=== PATIENT | female | born 1960 | race Caucasian/White ===

== ENCOUNTER 2021-09-25 11:48 | Outpatient (CLI) | payer BC, SELFPAY ==
[2021-09-25 15:35] LABS: Absolute Lymphocyte Count 3.74 X10^3/uL (0.83-4.51); Absolute Neutrophil Count 4.3 X10^3/uL (2.0-7.7); Basophil# 0.16 X10^3/uL; Basophil% 1.6 % (0-1); Eosinophil# 0.46 X10^3/uL; Eosinophils% 4.7 % (0-5); Hematocrit 42.3 % (37-47); Lymphocyte # 3.74 X10^3/ul (0.83-4.51); Lymphocyte % 38.5 % (19-41); Mean Corp Hgb Conc 33.1 g/dL (32-36); Mean Corpuscular Hgb 30.1 pg (27.0-32.0); Mean Platelet Vol. 10.4 fl (6.2-12.0); Monocyte% 10.3 % (0-10); NRBC Flagged by Analyzer 0 % (0-5); Neutrophil % 44.4 % (47-70); Platelet Count 455 K/mm3 (150-450); RBC Distribution Width CV 13.7 % (11.6-14.6); RBC Distribution Width SD 45.3 fl (35.1-43.9); Red Blood Count 4.65 M/mm3 (4.2-5.4); White Blood Count 9.7 K/mm3 (4.4-11.0)
[2021-09-25 15:53] LABS: AST(SGOT) 18 U/L (15-37); Alanine Aminotransfer ALT/SGPT 36 U/L (13-56); Albumin, Serum 3.8 g/dL (3.2-5.0); Alkaline Phosphatase 77 U/L (45-117); Amylase 65 U/L (25-115); Anion Gap 6 (5-15); BUN 16 mg/dL (7-18); BUN/Creat Ratio 15.5 RATIO (10-20); Calcium,Total 9.6 mg/dL (8.5-10.1); Chloride 105 mmol/L (98-107); Cholesterol 206 mg/dL (200); Creatinine, Serum 1.03 mg/dL (0.55-1.02); EST Glomerular Filtration Rate 58 mL/min (>60); Est Glom Filt Rate - Afr Amer 70 mL/min (>60); Globulin 3.7 g/dL (2.2-4.2); Glucose 86 mg/dL (74-106); High Density Lipoprotein 49 mg/dL; Lipase 115 U/L (73-393); Potassium 4.4 mmol/L (3.5-5.1); Protein, Total 7.5 g/dL (6.4-8.2); Sodium Level 139 mmol/L (136-145); Triglycerides 256 mg/dL; Very Low Density Lipoprotein 51 mg/dL (5-40)
== END 2021-09-25 23:59 | disposition home or self-care (01) ==
LOC: BIMLAB 11:49
PROVIDERS: PCP Internal Medicine; Referring Provider Internal Medicine; Visit Provider Internal Medicine
DX: I10 Essential (primary) hypertension (principal); E03.9 Hypothyroidism, unspecified; Z98.890 Other specified postprocedural states
CPT/HCPCS: 36415; 80053; 80061; 82150; 83690; 84443; 85025

== ENCOUNTER 2021-10-20 13:15 | Outpatient (CLI) | payer BC, SELFPAY ==
--- NOTE | 2021-10-20 13:20 | BI_ITS ---
MAMMOGRAPHY - BILATERAL SCREENING 3-D TOMOSYNTHESIS REASON FOR EXAM: Female, 61 years old. Breast Cancer Screening PERTINENT HISTORY: No significant family history. TECHNIQUE: 2-D mammograms and 3-D Tomosynthesis of the breast (s) were performed. CAD was performed. COMPARISON: 08/13/2020 FINDINGS: The breast composition is composed of scattered fibroglandular density. Scattered benign calcifications are seen. No dense spiculated masses or suspicious microcalcifications are identified. No architectural distortion is identified. There is no skin thickening or retraction. There has been no significant change since the prior study. BI/SCRN MAMM (CAD)W/ZENAIDA BILAT IMPRESSION: No mammographic signs of malignancy. Routine yearly mammograms recommended. ASSESSMENT CATEGORY: BIRADS Category 1: Negative. A letter regarding these results will be sent to the patient by the facility within 30 days. FOLLOW UP RECOMMENDATION: Yearly follow up mammogram recommended. (A) Approximately 10% of breast cancers are not detected by mammography. A normal mammogram should not delay biopsy of a clinically suspicious abnormality. Electronically Signed: Evelio Hidalgo MD at 15:20 EDT ,
== END 2021-10-20 23:59 | disposition home or self-care (01) ==
LOC: OPBI 13:19
PROVIDERS: PCP Internal Medicine; Visit Provider Internal Medicine
DX: Z12.31 Encounter for screening mammogram for malignant neoplasm of breast (principal)
CPT/HCPCS: 77063; 77067

== ENCOUNTER → 2022-04-30 | Outpatient (CLI) | payer BC, SELFPAY ==
--- NOTE | 2022-04-30 11:19 | US_ITS ---
STUDY: ULTRASOUND BREAST - LEFT REASON FOR EXAM: Female, 62 years old. Left axillary swelling. TECHNIQUE: Axial and longitudinal images of the LEFT breast were performed with a high resolution ultrasound transducer. # OF IMAGES: 36 COMPARISON: None. FINDINGS: LEFT Breast: Imaging of the left axilla was obtained. There are 2, small benign-appearing lymph nodes. The largest lymph node measures 1 cm x 1.27 x 0.4 cm US/Breast Limited Unilateral IMPRESSION: There are 2 small benign-appearing left axillary lymph nodes. ASSESSMENT CATEGORY: BIRADS Category 2: Benign. A letter regarding these results will be sent to the patient by the facility within 30 days. Electronically Signed: Gerson Vernon MD at 13:26 EDT ,
== END | disposition home or self-care (01) ==
LOC: US 11:17
PROVIDERS: PCP Internal Medicine; Referring Provider Internal Medicine; Visit Provider Internal Medicine
DX: R22.31 Localized swelling, mass and lump, right upper limb (principal)
CPT/HCPCS: 76642

== ENCOUNTER → 2022-10-22 | Outpatient (CLI) | payer BC, SELFPAY ==
[2022-10-22 12:04] LABS: Absolute Lymphocyte Count 3.09 X10^3/uL (0.83-4.51); Absolute Neutrophil Count 3.2 X10^3/uL (2.0-7.7); Basophil# 0.14 X10^3/uL; Basophil% 1.8 % (0-1); Eosinophil# 0.49 X10^3/uL; Eosinophils% 6.4 % (0-5); Hematocrit 41.2 % (37-47); Hemoglobin 13.8 g/dL (12.0-15.0); Lymphocyte # 3.09 X10^3/ul (0.83-4.51); Lymphocyte % 40.4 % (19-41); Mean Corp Hgb Conc 33.5 g/dL (32-36); Mean Corpuscular Hgb 30.1 pg (27.0-32.0); Mean Platelet Vol. 10.5 fl (6.2-12.0); Monocyte# 0.75 X10^3/uL; Monocyte% 9.8 % (0-10); NRBC Flagged by Analyzer 0 % (0-5); Neutrophil # 3.15 X10^3/uL (2.7-7.7); Neutrophil % 41.3 % (47-70); Platelet Count 380 K/mm3 (150-450); RBC Distribution Width CV 13.7 % (11.6-14.6); RBC Distribution Width SD 44.8 fl (35.1-43.9); Red Blood Count 4.58 M/mm3 (4.2-5.4); White Blood Count 7.6 K/mm3 (4.4-11.0)
[2022-10-22 12:23] LABS: ALB/GLOB Ratio 0.9 RATIO (0.9-2.4); AST(SGOT) 22 U/L (15-37); Alanine Aminotransfer ALT/SGPT 37 U/L (13-56); Albumin, Serum 3.4 g/dL (3.2-5.0); Alkaline Phosphatase 69 U/L (45-117); Amylase 55 U/L (25-115); Anion Gap 2 (5-15); BUN 18 mg/dL (7-18); Calcium,Total 9.1 mg/dL (8.5-10.1); Chloride 109 mmol/L (98-107); Cholesterol 180 mg/dL (200); EST Glomerular Filtration Rate 60 mL/min (>60); Est Glom Filt Rate - Afr Amer 73 mL/min (>60); Globulin 3.7 g/dL (2.2-4.2); Glucose 103 mg/dL (74-106); High Density Lipoprotein 50 mg/dL; Lipase 36 U/L (13-75); Potassium 4.3 mmol/L (3.5-5.1); Protein, Total 7.1 g/dL (6.4-8.2); Sodium Level 138 mmol/L (136-145); Thyroid Stim Hormone (TSH) 0.32 uIU/mL (0.358-3.74); Triglycerides 160 mg/dL; Very Low Density Lipoprotein 32 mg/dL (5-40)
== END | disposition home or self-care (01) ==
LOC: BIMLAB 08:51
PROVIDERS: PCP Internal Medicine; Referring Provider Internal Medicine; Visit Provider Internal Medicine
DX: Z98.890 Other specified postprocedural states (principal); I10 Essential (primary) hypertension; E03.9 Hypothyroidism, unspecified
CPT/HCPCS: 36415; 80053; 80061; 82150; 83690; 84443; 85025

== ENCOUNTER → 2022-10-29 | Outpatient (CLI) | payer BC, SELFPAY ==
--- NOTE | 2022-10-29 07:16 | BI_ITS ---
MAMMOGRAPHY - BILATERAL SCREENING REASON FOR EXAM: Female, 62 years old. Routine annual screening examination. PERTINENT HISTORY: Non-contributory. TECHNIQUE: Digital bilateral breast zenaida (3D mammographic acquisition) in the CC and MLO projections. 2-D mediolateral oblique (MLO) and craniocaudad (CC) views of both breasts were obtained. CAD: Full Field Digital Mammography with Computer Added Detection was performed. COMPARISON: Comparison is made with prior study dated October 20, 2021. FINDINGS: Breast Composition: There are scattered areas of fibroglandular density. There are no dominant masses or suspicious calcifications. Stable small benign-appearing bilateral axillary lymph nodes. No other significant abnormalities are identified. There has been no significant change since the prior study. BI/SCRN MAMM (CAD)W/ZENAIDA BILAT IMPRESSION: Stable bilateral screening mammogram. Yearly follow-up mammogram recommended. (A) ASSESSMENT CATEGORY: BIRADS Category 2: Benign. A letter regarding these results will be sent to the patient by the facility within 30 days. Approximately 10% of breast cancers are not detected by mammography. A normal mammogram should not delay biopsy of a clinically suspicious abnormality. [id number] Electronically Signed: Gerson Vernon MD at 8:59 EDT ,
== END | disposition home or self-care (01) ==
LOC: OPBI 07:16
PROVIDERS: PCP Internal Medicine; Referring Provider Internal Medicine; Visit Provider Internal Medicine
DX: Z12.31 Encounter for screening mammogram for malignant neoplasm of breast (principal)
CPT/HCPCS: 77063; 77067

== ENCOUNTER → 2022-11-19 | Outpatient (CLI) | payer BC, SELFPAY ==
[2022-11-19 16:06] LABS: Anion Gap 6 (5-15); BUN 17 mg/dL (7-18); Calcium,Total 9.4 mg/dL (8.5-10.1); Chloride 105 mmol/L (98-107); Creatinine, Serum 0.95 mg/dL (0.55-1.02); EST Glomerular Filtration Rate 64 mL/min (>60); Est Glom Filt Rate - Afr Amer 77 mL/min (>60); Glucose 85 mg/dL (74-106); Potassium 4.3 mmol/L (3.5-5.1); Sodium Level 140 mmol/L (136-145)
== END | disposition home or self-care (01) ==
LOC: BIMLAB 14:22
PROVIDERS: PCP Internal Medicine; Referring Provider Internal Medicine; Visit Provider Internal Medicine
DX: I10 Essential (primary) hypertension (principal)
CPT/HCPCS: 36415; 80048

== ENCOUNTER 2023-01-17 06:59 | Day surgery (SDC) | payer BC, SELFPAY ==
[2023-01-17] VITALS (7 sets, daily range): BP systolic 110–146; BP diastolic 74–96; PULSE 70–91; RESP 14–16; TEMP 36.1–36.7; O2SAT 93–97; BMI 34.7
--- NOTE | 2023-01-17 07:13 | HP.PCM_ITS ---
[facility] - General General Date of Service: 01/17/23 HPI Narrative VANIA MALONE, is a 62 F who presents for screening colonoscopy. Patient had a colonoscopy 10 years ago normal per patient somewhere in [place]. Patient has bowel movements daily denies any blood. Patient denies any chronic abdominal pain/nausea/vomiting/reflux. Patient denies any family history of colon cancer. 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 [facility] Medical History (Updated 01/12/23 @ 11:06 by Elmira Russell) Arthritis Colon cancer screening COVID Flu vaccine need GERD (gastroesophageal reflux disease) Health care maintenance Hernia Hiatal hernia History of hiatal hernia History of injury of tendon History of pneumonia History of stress test (~2004) Hypertension Left axillary swelling Neuralgia Non-smoker Obesity (BMI 30-39.9) Preventative health care Sinusitis Thyroid disease Wears glasses Home Medications THRIVE MULTIVITAMIN 1 tab PO 1XD 09/02/21 [History Last Taken Unknown] omeprazole 20 mg capsule,delayed release 20 mg PO DAILY 09/02/21 [History Last Taken Unknown] levothyroxine 125 mcg tablet See Rx Instructions .Route .COMPLEX #90 tabs 08/27/22 [Rx Last Taken Unknown] metoprolol succinate 50 mg tablet,extended release 24 hr 50 mg PO QHS #90 tabs 11/19/22 [Rx Last Taken Unknown] hydrochlorothiazide 25 mg tablet See Rx Instructions .Route .COMPLEX #90 tabs 12/17/22 [Rx Last Taken Unknown] Allergy/AdvReac Type Severity Reaction Status Date / Time No Known Allergies Allergy Verified 01/12/23 10:50 Family History (Updated 12/02/22 @ 11:40 by Kirsten Sullivan) Aunt Colon cancer Other Cancer Diabetes Heart disease Hypertension Surgical History (Updated 01/12/23 @ 11:06 by Elmira Russell) History of cardiac catheterization (~2004) History of colonoscopy History of pancreatic surgery (~2004) History of partial splenectomy History of splenectomy History of tonsillectomy Social History Smoking Status: Never smoker alcohol intake: never substance use type: does not use what type of physical activity do you participate in: none Past Medical/Surgical History Planned Operation Planned Operative Procedure/s: CSCOPE Previous Hospitalizations/Surgeries HX Hospitalizations: No Any Problems With Anesthesia: No You/Your Family Experience Fever (Hyperthermia) With Anes: No Cholinesterase deficiency: No Cardiovascular Hx Hypertension: Yes (CONTROLLED WITH MED) Respiratory Hx Sleep Apnea: No Hx Respiratory Tract Infection/Cold (presently): No Do You Snore Loudly (louder than talking or can be heard): Yes Do You Often Feel Tired/ Fatigued/ Sleepy Dring Daytime?: No Has Anyone Observed You Stop Breathing During Sleep?: No Result (for STOP score): Positive Smoking Status: Never smoker Neurological Does patient have nerve stimulator: No Allergies No Known Allergies Allergy (Verified 01/12/23 10:50) Discharge Is Pt Admitted From a Group Home, or a Prison: No After D/C, Where Do you Plan to Go: Return Home Physical Exam Const alert, oriented x3 and no apparent distress HEENT normocephalic and head/scalp atraumatic Resp normal respiratory effort Cardio regular rate GI soft to palpation and non-tender; Negative for non-distended Palpation: Negative for guarding Extremity no clubbing, cyanosis or edema Neuro CN's II-XII intact bilaterally Psych mental status grossly normal Assessment & Plan Assessment/Plan (1) Colon cancer screening: Surgery Risks - Colonoscopy I discussed with the patient the risks of the procedure: Yes Risks Include but are not Limited To: Risks include but are not limited to: Bleeding, perforation requiring further surgery, inability to complete colonoscopy requiring barium enema.
[2023-01-17] MEDS: Lactated Ringers 1,000 ML 15 ML IV (07:36)
--- NOTE | 2023-01-17 08:40 | OP.COLON_ITS ---
Patient Name: Sera Woo Procedure Date: 01/17/2023 8:03 AM Date of : 1960 Age: 62 Procedure: Colonoscopy Indications: Screening for colorectal malignant neoplasm Providers: Elsa Erickson MD Referring MD: Elsa Erickson MD Medicines: Monitored Anesthesia Care Patient Profile: This is a 62 year old female. Last Colonoscopy: 10 years ago. Complications: No immediate complications. Procedure: Pre-Anesthesia Assessment: - Prior to the procedure, a History and Physical was performed, and patient medications and allergies were reviewed. The patient's tolerance of previous anesthesia was also reviewed. The risks and benefits of the procedure and the sedation options and risks were discussed with the patient. All questions were answered, and informed consent was obtained. Prior Anticoagulants: The patient has taken no previous anticoagulant or antiplatelet agents. ASA Grade Assessment: Per anesthesia. After reviewing the risks and benefits, the patient was deemed in satisfactory condition to undergo the procedure. After I obtained informed consent, the scope was passed under direct vision. Throughout the procedure, the patient's blood pressure, pulse, and oxygen saturations were monitored continuously. The Colonoscope was introduced through the anus and advanced to the cecum, identified by the appendiceal orifice, ileocecal valve and palpation. The colonoscopy was performed without difficulty. The patient tolerated the procedure well. The quality of the bowel preparation was good. Scope In: 8:11:52 AM Scope Withdrawal Time 0 hours 9 minutes 27 seconds Scope Out: 8:34:01 AM Total Procedure Duration Time 0 hours 22 minutes 9 seconds Findings: Hemorrhoids were found on perianal exam. Non-bleeding internal hemorrhoids were found. The hemorrhoids were Grade I (internal hemorrhoids that do not prolapse). Three sessile polyps were found in the descending colon and ascending colon. The polyps were 3 to 6 mm in size. These polyps were removed with a cold biopsy forceps. Resection and retrieval were complete. The exam was otherwise without abnormality. Impression: - Hemorrhoids found on perianal exam. - Non-bleeding internal hemorrhoids. - Three 3 to 6 mm polyps in the descending colon and in the ascending colon, removed with a cold biopsy forceps. Resected and retrieved. - The examination was otherwise normal. Recommendation: - Discharge patient to home. - Resume previous diet. - Continue present medications. - Await pathology results. - Repeat colonoscopy in 3 - 5 years for surveillance based on pathology results. Procedure Code(s): --- Professional --- 63035, PT, Colonoscopy, flexible; with biopsy, single or multiple Diagnosis Code(s): --- Professional --- Z12.11, Encounter for screening for malignant neoplasm of colon K64.0, First degree hemorrhoids D12.4, Benign neoplasm of descending colon D12.2, Benign neoplasm of ascending colon CPT copyright 2017 [employer]. All rights reserved. The codes documented in this report are preliminary and upon tier in review may be revised to meet current compliance requirements. MD Elsa Haynes MD 01/17/2023 8:39:53 AM This report has been signed electronically. Number of Addenda: 0 Note Initiated On: 01/17/2023 8:03 AM
--- NOTE | 2023-01-17 08:41 | OP.CCLET_ITS ---
01/17/2023 Michelle Vanegas MD [address] [place] [address] [place] [address] Re : Colonoscopy procedure for Sera Woo Dear Dr. Vanegas This procedure was performed on Tuesday, January 17, 2023. My impressions and recommendations are as follows: Impressions : - Hemorrhoids found on perianal exam. - Non-bleeding internal hemorrhoids. - Three 3 to 6 mm polyps in the descending colon and in the ascending colon, removed with a cold biopsy forceps. Resected and retrieved. - The examination was otherwise normal. Recommendations : - Discharge patient to home. - Resume previous diet. - Continue present medications. - Await pathology results. - Repeat colonoscopy in 3 - 5 years for surveillance based on pathology results. My findings are described in the full procedure note, which is enclosed. If I can be of further assistance, please feel free to contact me at Doctor phone number(s): , Work: . Sincerely, MD Elsa Haynes MD 01/17/2023 8:39:53 AM This report has been signed electronically.
--- NOTE | 2023-01-17 11:12 | COLBX_PTH ---
PATIENT: VANIA MALONE LOC: EN U#:[id number] AGE/SX: 62/F ROOM: RE01/17/[address]: Dr. Elsa Erickson MD : 1960 BED: DIS: 01/17/2023 SPEC #: [id number] RECD: 01/17/23 11:12 STATUS: MAHSA TYLER #: [id number] SARI: 01/17/23 11:[address]: Elsa Erickson DEPT: SURGICAL PATHOLOGY RECD BY: Ishan Guillen ENTERED: 01/17/23 11:35 SP TYPE: COLON BX OT DR: Dr. Michelle Vanegas MD Tissues: A - Ascending colon B - Descending colon Procedures: Surgery Specimen Level IV HEADER OPERATION: Colonoscopy - open access (MAC), biopsy PRE-OP DIAGNOSIS: Colon cancer screening TISSUE SUBMITTED: A - Ascending polyps biopsy (x2), B - Descending polyp biopsy MICROSCOPIC DIAGNOSIS A. Ascending colon polyps (x2), biopsy: Fragments of tubular adenoma. B. Descending colon polyp, biopsy: Tubular adenoma. QUIANA:carson 01/18/2023 MICROSCOPIC DESCRIPTION Slides are reviewed. GROSS DESCRIPTION A - Received in fixative is one container labeled with the patient's name and designated ascending polyps biopsy. The specimen consists of multiple irregular fragments of light bennett soft tissue that in aggregate measure 2.0 x 0.5 x 0.,1 cm. The specimen is totally submitted in one cassette. B - Received in fixative is one container labeled with the patient's name and designated descending polyp biopsy. The specimen consists of multiple irregular fragments of light bennett soft tissue that in aggregate measure 0.7 x 0.3 x 0.1 cm. The specimen is totally submitted in one cassette. / QUIANA:carson 01/17/2023 TC:1 CPT: 07287 x2
== END 2023-01-17 09:29 | disposition home or self-care (01) ==
LOC: EN 07:06 → AC 07:06
PROVIDERS: PCP Internal Medicine; Referring Provider Internal Medicine; Visit Provider Surgery
PROC: 0DJD8ZZ Inspection of Lower Intestinal Tract, Via Natural or Artificial Opening Endoscopic (ICD-10-PCS; CPT 45378; principal; 2023-01-17 08:10)
DX: Z12.11 Encounter for screening for malignant neoplasm of colon (principal); K64.0 First degree hemorrhoids; I10 Essential (primary) hypertension; K64.4 Residual hemorrhoidal skin tags; Z79.899 Other long term (current) drug therapy; D12.4 Benign neoplasm of descending colon; D12.2 Benign neoplasm of ascending colon; E03.9 Hypothyroidism, unspecified; Z79.890 Hormone replacement therapy; Z87.19 Personal history of other diseases of the digestive system
CPT/HCPCS: 45380; 88305; J7120; J2405

== ENCOUNTER → 2023-08-10 | Outpatient (CLI) | payer BC, SELFPAY ==
[2023-08-10 15:03] LABS: Absolute Lymphocyte Count 3.87 X10^3/uL (0.83-4.51); Absolute Neutrophil Count 4.8 X10^3/uL (2.0-7.7); Basophil# 0.13 X10^3/uL; Basophil% 1.2 % (0-1); Eosinophil# 0.99 X10^3/uL; Eosinophils% 9.1 % (0-5); Hematocrit 42.8 % (37-47); Hemoglobin 14.3 g/dL (12.0-15.0); Lymphocyte # 3.87 X10^3/ul (0.83-4.51); Lymphocyte % 35.5 % (19-41); Mean Corp Hgb Conc 33.4 g/dL (32-36); Mean Corpuscular Hgb 29.5 pg (27.0-32.0); Mean Corpuscular Volume 88.2 fL (81-99); Mean Platelet Vol. 10.5 fl (6.2-12.0); Monocyte# 1.11 X10^3/uL; Monocyte% 10.2 % (0-10); NRBC Flagged by Analyzer 0 % (0-5); Neutrophil # 4.76 X10^3/uL (2.7-7.7); Neutrophil % 43.7 % (47-70); Platelet Count 444 K/mm3 (150-450); RBC Distribution Width CV 13.1 % (11.6-14.6); RBC Distribution Width SD 42.5 fl (35.1-43.9); Red Blood Count 4.85 M/mm3 (4.2-5.4); White Blood Count 10.9 K/mm3 (4.4-11.0)
[2023-08-10 15:25] LABS: ALB/GLOB Ratio 1.1 RATIO (0.9-2.4); AST(SGOT) 18 U/L (15-37); Alanine Aminotransfer ALT/SGPT 34 U/L (13-56); Albumin, Serum 3.8 g/dL (3.2-5.0); Alkaline Phosphatase 72 U/L (45-117); Anion Gap 2 (5-15); BUN 15 mg/dL (7-18); BUN/Creat Ratio 15.9 RATIO (10-20); Calcium,Total 9.2 mg/dL (8.5-10.1); Chloride 108 mmol/L (98-107); Cholesterol 194 mg/dL (200); Creatinine, Serum 0.94 mg/dL (0.55-1.02); EST Glomerular Filtration Rate 64 mL/min (>60); Est Glom Filt Rate - Afr Amer 78 mL/min (>60); Globulin 3.5 g/dL (2.2-4.2); Glucose 89 mg/dL (74-106); High Density Lipoprotein 50 mg/dL; Potassium 4.3 mmol/L (3.5-5.1); Protein, Total 7.3 g/dL (6.4-8.2); Sodium Level 137 mmol/L (136-145); Thyroid Stim Hormone (TSH) 0.23 uIU/mL (0.358-3.74); Triglycerides 174 mg/dL; Very Low Density Lipoprotein 35 mg/dL (5-40)
== END | disposition home or self-care (01) ==
LOC: BIMLAB 13:34
PROVIDERS: PCP Internal Medicine; Referring Provider Internal Medicine; Visit Provider Internal Medicine
DX: I10 Essential (primary) hypertension (principal); E03.9 Hypothyroidism, unspecified
CPT/HCPCS: 36415; 80053; 80061; 84443; 85025

== ENCOUNTER → 2023-11-30 | Outpatient (CLI) | payer BC, SELFPAY ==
[2023-11-30 16:14] LABS: Thyroid Stim Hormone (TSH) 0.36 uIU/mL (0.358-3.74)
== END | disposition home or self-care (01) ==
LOC: BIMLAB 11:41
PROVIDERS: PCP Internal Medicine; Visit Provider Internal Medicine
DX: E03.9 Hypothyroidism, unspecified (principal)
CPT/HCPCS: 36415; 84443

== ENCOUNTER → 2024-03-02 | Outpatient (CLI) | payer BC, SELFPAY ==
[2024-03-02 15:43] LABS: Vitamin D,25 Hydroxy 44.3 ng/mL
[2024-03-02 16:17] LABS: Anion Gap 5 (5-15); BUN 12 mg/dL (7-18); BUN/Creat Ratio 10.2 RATIO (10-20); Calcium,Total 9.4 mg/dL (8.5-10.1); Chloride 108 mmol/L (98-107); Creatinine, Serum 1.18 mg/dL (0.55-1.02); EST Glomerular Filtration Rate 49 mL/min (>60); Est Glom Filt Rate - Afr Amer 60 mL/min (>60); Glucose 90 mg/dL (74-106); Potassium 4.3 mmol/L (3.5-5.1); Sodium Level 139 mmol/L (136-145); Thyroid Stim Hormone (TSH) 0.636 uIU/mL (0.358-3.740)
== END | disposition home or self-care (01) ==
LOC: BIMLAB 11:50
PROVIDERS: PCP Internal Medicine; Visit Provider Internal Medicine
DX: E03.9 Hypothyroidism, unspecified (principal); I10 Essential (primary) hypertension; Z13.21 Encounter for screening for nutritional disorder
CPT/HCPCS: 36415; 80048; 82306; 84443

== ENCOUNTER → 2024-03-27 | Outpatient (CLI) | payer BC, SELFPAY ==
--- NOTE | 2024-03-27 14:31 | BI_ITS ---
MAMMOGRAPHY - BILATERAL SCREENING REASON FOR EXAM: Female, 64 years old. Routine annual screening examination. PERTINENT HISTORY: Non-contributory. TECHNIQUE: Digital bilateral breast zenaida (3D mammographic acquisition) in the CC and MLO projections. 2-D mediolateral oblique (MLO) and craniocaudad (CC) views of both breasts were obtained. CAD: Full Field Digital Mammography with Computer Added Detection was performed. COMPARISON: Comparison is made with prior outside examination October 29, 2022. FINDINGS: Breast Composition: There are scattered areas of fibroglandular density. There are no dominant masses or suspicious calcifications. Stable small benign-appearing bilateral axillary lymph nodes. No other significant abnormalities are identified. There has been no significant change since the prior study. BI/SCRN MAMM (CAD)W/ZENAIDA BILAT IMPRESSION: Stable bilateral screening mammogram. Yearly follow-up mammogram recommended. (A) ASSESSMENT CATEGORY: BIRADS Category 2: Benign. A letter regarding these results will be sent to the patient by the facility within 30 days. Approximately 10% of breast cancers are not detected by mammography. A normal mammogram should not delay biopsy of a clinically suspicious abnormality. [id number] Electronically Signed: Gerson Vernon MD at 15:29 EDT ,
--- NOTE | 2024-03-27 14:34 | BD_ITS ---
STUDY: DUAL ENERGY X-RAY ABSORPTIOMETRY / DXA REASON FOR EXAM: Female, 64 years old. Post menopausal TECHNIQUE: Bone Mineral Density (BMD) measurements of lumbar spine and bilateral hips were obtained. COMPARISON: None. FINDINGS: Lumbar Spine (L1-L4): g/cm2 (0.909) / T-score (-1.1) / Z-score (0.4) Findings are suggestive of osteopenia with a low fracture risk. Left Femur Total: g/cm2 (0.848) / T-score (-0.8) / Z-score (0.3) Left Femoral Neck: g/cm2 (0.703) / T-score (-1.3) / Z-score (0.1) Right Femur Total: g/cm2 (0.817) / T-score (-1.0) / Z-score (0.0) Right Femoral Neck: g/cm2 (0.849) / T-score (0.0) / Z-score (1.4) BD/Dexa Bone Density Study IMPRESSION: The patient is considered osteopenic as outlined below according to World Jose Organization (WHO) criteria with a low fracture risk. Reference Information: The T-score is the number of standard deviations above or below the standard which is normal for young adults at their peak bone mineral density. The World Health Organization (WHO) interprets the T-scores as follows: Above -1 Normal bone density Between -1 and -2.5 Osteopenia Equal to / or below -2.5 Osteoporosis As a practical clinical guideline, osteopenia may be graded as follows: Mild -1 through -1.5 Moderate -1.6 through -2.0 Severe -2.1 through -2.4 The Z-score is the number of standard deviations above or below age-matched controls. A Z-score of less than -1.5 would be considered abnormal. References: 1. NIH Osteoporosis and Related Bone Diseases www osteo.org 2. International Society for Clinical Densitometry www iscd.org 3. National Osteoporosis Foundation www nof.org Electronically Signed: Gerson Vernon MD at 14:23 EDT ,
== END | disposition home or self-care (01) ==
PROVIDERS: PCP Internal Medicine; Referring Provider Internal Medicine; Visit Provider Internal Medicine
DX: Z12.31 Encounter for screening mammogram for malignant neoplasm of breast (principal); Z78.0 Asymptomatic menopausal state
CPT/HCPCS: 77063; 77067; 77080

== ENCOUNTER → 2024-09-26 | Outpatient (CLI) | payer OTHER, SELFPAY ==
[2024-09-26 15:53] LABS: Absolute Lymphocyte Count 3.38 X10^3/uL (0.83-4.51); Absolute Neutrophil Count 5.1 X10^3/uL (2.0-7.7); Basophil# 0.12 X10^3/uL; Basophil% 1.2 % (0-1); Eosinophil# 0.51 X10^3/uL; Eosinophils% 5.1 % (0-5); Hematocrit 41.7 % (37-47); Hemoglobin 14.1 g/dL (12.0-15.0); Lymphocyte # 3.38 X10^3/ul (0.83-4.51); Lymphocyte % 33.6 % (19-41); Mean Corp Hgb Conc 33.8 g/dL (32-36); Mean Corpuscular Hgb 30.4 pg (27.0-32.0); Mean Corpuscular Volume 89.9 fL (81-99); Mean Platelet Vol. 10.7 fl (6.2-12.0); Monocyte% 8.9 % (0-10); NRBC Flagged by Analyzer 0 % (0-5); Neutrophil # 5.12 X10^3/uL (2.7-7.7); Neutrophil % 50.8 % (47-70); Platelet Count 483 K/mm3 (150-450); RBC Distribution Width CV 13.7 % (11.6-14.6); Red Blood Count 4.64 M/mm3 (4.2-5.4); White Blood Count 10.1 K/mm3 (4.4-11.0)
[2024-09-26 20:25] LABS: ALB/GLOB Ratio 1.4 RATIO (0.9-2.4); AST(SGOT) 42 U/L (<=31); Alanine Aminotransfer ALT/SGPT 28 U/L (<=34); Albumin, Serum 4.2 g/dL (3.4-4.8); Alkaline Phosphatase 65 U/L (35-104); Anion Gap 10 (5-15); BUN 19 mg/dL (4-19); BUN/Creat Ratio 23.9 RATIO (10-20); Calcium,Total 9.7 mg/dL (7.6-11.0); Carbon Dioxide 24.6 mmol/L (21.0-32.0); Chloride 105 mmol/L (98-108); Creatinine, Serum 0.81 mg/dL (0.70-1.20); EST Glomerular Filtration Rate 83 (>60); Glucose 86 mg/dL (70-99); Potassium 4.5 mmol/L (3.3-5.1); Protein, Total 7.2 g/dL (5.9-8.4); Sodium Level 140 mmol/L (133-145); Thyroid Stim Hormone (TSH) 0.895 uIU/mL (0.300-4.200); Total Bilirubin 0.23 mg/dL (0.00-1.30)
[2024-09-26 20:35] LABS: Cholesterol 204 mg/dL (<=200); High Density Lipoprotein 53 mg/dL; Low Density Lipoprotein Calc. 116 mg/dL; Triglycerides 173 mg/dL; Very Low Density Lipoprotein 35 mg/dL (5-40); cholesterol:hdl ratio screen 3.84
== END | disposition home or self-care (01) ==
LOC: BIMLAB 13:11
PROVIDERS: PCP Internal Medicine; Referring Provider Internal Medicine; Visit Provider Internal Medicine
DX: I10 Essential (primary) hypertension (principal); E03.9 Hypothyroidism, unspecified
CPT/HCPCS: 36415; 80053; 80061; 84443; 85025

== ENCOUNTER → 2025-01-30 | Outpatient (CLI) | payer OTHER, SELFPAY ==
[2025-01-30 12:28] LABS: Hematocrit 42.2 % (37-47); Hemoglobin 13.8 g/dL (12.0-15.0); Immature Granulocytes Count 0.150 X10^3/uL (0.0-0.0); Mean Corp Hgb Conc 32.7 g/dL (32-36); Mean Corpuscular Volume 90.6 fL (81-99); Mean Platelet Vol. 11.1 fl (6.2-12.0); NRBC Flagged by Analyzer 0 % (0-5); Platelet Count 399 K/mm3 (150-450); RBC Distribution Width CV 13.6 % (11.6-14.6); RBC Distribution Width SD 45.0 fl (35.1-43.9); Red Blood Count 4.66 M/mm3 (4.2-5.4); White Blood Count 18.3 K/mm3 (4.4-11.0)
[2025-01-30 13:10] LABS: AST(SGOT) 17 U/L (<=31); Alanine Aminotransfer ALT/SGPT 25 U/L (<=34); Albumin, Serum 4.2 g/dL (3.4-4.8); Alkaline Phosphatase 66 U/L (35-104); Anion Gap 12 (5-15); BUN 20 mg/dL (4-19); BUN/Creat Ratio 19.0 RATIO (10-20); Calcium,Total 9.6 mg/dL (7.6-11.0); Carbon Dioxide 23.0 mmol/L (21.0-32.0); Chloride 108 mmol/L (98-108); Globulin 2.7 g/dL (2.2-4.2); Glucose 84 mg/dL (70-99); Potassium 4.2 mmol/L (3.3-5.1)
[2025-01-30 13:27] LABS: CRP < 3.00 mg/L (0.0-3.0)
[2025-01-31 14:08] LABS: ANTINUCLEAR ANTIBODIES DIRECT Negative (Negative)
== END | disposition home or self-care (01) ==
LOC: BIMLAB 09:43
PROVIDERS: PCP Internal Medicine; Visit Provider Internal Medicine
DX: G51.0 Bell's palsy (principal); I10 Essential (primary) hypertension
CPT/HCPCS: 36415; 80053; 85025; 85652; 86038; 86140; 86225

== ENCOUNTER → 2025-02-05 | Outpatient (CLI) | payer OTHER, SELFPAY ==
--- NOTE | 2025-02-05 13:11 | MRI_ITS ---
PROCEDURE: BRAIN W/WO CONTRAST 02/05/2025 REASON FOR EXAM: RECURRENT ROYAL'S PALSY TECHNIQUE: BRAIN W/WO CONTRAST Multiplanar and multisequence images were obtained. CONTRAST: Clariscan VOLUME: 18 mL FINDINGS: There is abnormal enhancement of the right facial nerve within the right temporal bone, consistent with Royal's palsy. There are scattered punctate foci of abnormal periventricular and subcortical white matter signal in both cerebral hemispheres consistent with chronic ischemic white matter disease. There is a normal sulcal pattern and gyral configuration. There is no evidence of acute intracranial hemorrhage or infarction. The green-white differentiation is well preserved. There is no evidence of restricted diffusion. The ventricles and basilar cisterns are normal. There are normal flow voids demonstrated in the recognized intracranial vessels. The cerebellum and brainstem are unremarkable. The cerebellar pontine angles are normal. The craniovertebral junction is normal. The sella and suprasellar regions are normal. The orbits and retro-orbital regions are unremarkable. The nasal septum is midline. There is no significant paranasal sinus disease. The mastoid air cells are clear. There is normal bone marrow signal in the skull base and calvarium. MRI/Brain W/WO Contrast IMPRESSION: 1. Abnormal enhancement of the right facial nerve consistent with Royal's palsy . 2. Other findings as noted. Reading Location: [id number]
== END | disposition home or self-care (01) ==
LOC: MRI 13:07
PROVIDERS: PCP Internal Medicine; Referring Provider Internal Medicine; Visit Provider Internal Medicine
DX: G51.0 Bell's palsy (principal)
CPT/HCPCS: 70553; A9575

== ENCOUNTER → 2025-05-23 | Outpatient (CLI) | payer OTHER, SELFPAY ==
--- NOTE | 2025-05-23 12:15 | BI_ITS ---
EXAM: SCRN MAMM (CAD)W/ZENAIDA BILAT DATE: 05/23/2025 CLINICAL HISTORY: F, Age 65 y/o , BREAST CANCER SCREENING TECHNIQUE: Procedure Code: [id number] Modality: MG Procedure: SCRN MAMM (CAD)W/ZENAIDA BILAT COMPARISON: Prior exam(s) dated March 27, 2024. FINDINGS: TISSUE DENSITY: There are scattered areas of fibroglandular density. Bilateral Breast Mammographic Findings: No significant masses, calcifications or other abnormalities are identified. Stable small benign-appearing bilateral axillary lymph nodes. No suspicious masses, areas of developing architectural distortion, or suspicious calcifications. There has been no significant interval change. BI/SCRN MAMM (CAD)W/ZENAIDA BILAT IMPRESSION: Stable bilateral screening mammogram. OVERALL FINAL ASSESSMENT BI-RADS 2: BENIGN RECOMMENDATION: Routine annual follow-up in 1 Year Additional Recommendation none A letter with findings and recommendations will be mailed to the patient. Reading Location: [facility]
[2025-05-23 13:48] LABS: Anion Gap 9 (5-15); BUN 15 mg/dL (4-19); BUN/Creat Ratio 15.9 RATIO (10-20); Calcium,Total 9.1 mg/dL (7.6-11.0); Carbon Dioxide 27.5 mmol/L (21.0-32.0); Chloride 104 mmol/L (98-108); Glucose 152 mg/dL (70-99); Potassium 4.0 mmol/L (3.3-5.1)
--- OUTSIDE RECORDS SUMMARY | 2025-05-23 18:24 | XMS RPT_ITS | CCD ---
Author Organization [facility] [place] [facility] Care Team Providers Care Child Adolescent Care Name Role Phone Guilherme ZABALA, Dr. Martinez Primary Care Provider Guilherme ZABALA, Dr. Martinez Referring Provider Julian Luo Attending Provider Guilherme ZABALA, Dr. Martinez Attending Provider [phone] Guilherme ZABALA, Dr. Martinez Primary Care Provider Guilherme ZABALA, Dr. Martinez Referring Provider [phone] JELENA GOMES Primary Care Physician Guilherme ZABALA, Dr. Martinez Primary Care Provider Guilherme ZAABLA, Dr. Martinez Attending Provider [phone] Guilherme ZABALA, Dr. Martinez Referring Provider [phone] ANA FALCON, JELENA Sanders Primary Care Abimael NEWTON MD, MAYELIN Attending Unavailable ELGIN GARRETT MD Attending Unavailable JELENA GOMES Primary Care Abimael Castelan ZIPPER SETTER LOCKSTITCH, Jelena Solorio Primary Care Provider Oleghe, Efewongbe Primary Care Unavailable Oleghe, Efewongbe Attending Unavailable Oleghe, Efewongbe Attending Unavailable Oleghe, Efewongbe Referring Unavailable Oleghe, Efewongbe Primary Care Unavailable Oleghe, Efewongbe Attending Unavailable Oleghe, Efewongbe Referring Unavailable Oleghe, Efewongbe Primary Care Unavailable Oleghe, Efewongbe Primary Care Unavailable Oleghe, Efewongbe Attending Unavailable Oleghe, Efewongbe Referring Unavailable Oleghe, Efewongbe Primary Care Unavailable Oleghe, Efewongbe Attending Unavailable Oleghe, Efewongbe Referring Unavailable Oleghe, Efewongbe Attending Unavailable Oleghe, Efewongbe Referring Unavailable Oleghe, Efewongbe Primary Care Unavailable Oleghe, Efewongbe Attending Unavailable Oleghe, Efewongbe Referring Unavailable Oleghe, Efewongbe Primary Care Unavailable Julian Luo Attending Unavailable Oleghe, Efewongbe Referring Unavailable Oleghe, Efewongbe Primary Care Unavailable Oleghe, Efewongbe Primary Care Unavailable Julian Luo Attending Unavailable Oleghe, Efewongbe Referring Unavailable Oleghe, Efewongbe Attending Unavailable Oleghe, Efewongbe Referring Unavailable Oleghe, Efewongbe Primary Care Unavailable Oleghe, Efewongbe Primary Care Unavailable Oleghe, Efewongbe Attending Unavailable Oleghe, Efewongbe Referring Unavailable Medications Current Medications Medication Drug Class(es) Dates Sig (Normalized) Sig (Original) Albuterol-Budesonide (Airsupra) 90-80 mcg/actuation HFA aerosol inhaler (10 sources) Start: 09-05-2024 Albuterol-Budesonid e (Airsupra) 90-80 mcg/actuation HFA aerosol inhaler Active 2 NMA INHALATION ONCE 5.9 0 September 05, 2024 12:58pm as a single dose; may repeat up to 6 doses per day (12 inhalations) Start: 09-05-2024 Albuterol-[place] sonide (Airsupra) 90-80 mcg/actuation HFA aerosol inhaler Active 2 NMA INHALATION ONCE 5.9 September 05, 2024 12:58pm as a single dose; may repeat up to 6 doses per day (12 inhalations) Start: 09-05-2024 End: 09-05-2024 Albuterol-Budesonide (Airsup ra) 90-80 mcg/actuation HFA aerosol inhaler Discontinued 2 NMA INHALATION ONCE 5.9 0 September 05, 2024 1:00am September 05, 2024 12:58pm as a single dose; may repeat up to 6 doses per day (12 inhalations) Start: 09-05-2024 End: 09-05-2024 Albuterol-Budesonide (Airsup ra) 90-80 mcg/actuation HFA aerosol inhaler Discontinued 2 NMA INHALATION ONCE 5.9 September 05, 2024 1:00am September 05, 2024 12:58pm as a single dose; may repeat up to 6 doses per day (12 inhalations) calcium carbonate 1500 mg / cholecalciferol 800 unt oral tablet (5 sources) Vitamin D Start: 05-23-2024 Calcium Carbonate-Vitamin D3 600 mg-20 mcg (800 unit) tablet Active 1 {tbl} PO daily May 23, 2024 1:00am codeine phosphate 2 mg/ml / guaiFENesin 20 mg/ml oral solution (15 sources) Opioid Agonist Start: 09-05-2024 take 1 mL by mouth every six hours as needed for cough Codeine-Guaifenesin (Guaifenesin Ac) 10-100 mg/5 mL liquid Active 10 mL PO EVERY 6 HOURS as needed for cough 120 0 September 05, 2024 1:00am Start: 04-02-2022 End: 10-22-2022 take 1 mL by mouth every six hours as needed for cough Codeine-Guaifenesin 10-100 mg/5 mL liquid Discontinued 5 mL PO EVERY 6 HOURS as needed for cough 120 1 April 08, 2022 8:14am October 22, 2022 8:11am nyquil HBP (5 sources) Start: 09-05-2024 nyquil HBP Act bella PO AT BEDTIME as needed September 05, 2024 1:00am omeprazole 20 mg delayed release oral capsule (6 sources) Proton Pump Inhibitor Start: 03-23-2016 take 1 capsule by mouth once daily Omeprazole 20 mg capsule,delayed release(DR/EC) Active 20 mg PO DAILY September 02, 2021 1:00am predniSONE 20 mg oral tablet (9 sources) Start: 01-30-2025 take 2 tablets by mouth once daily Prednisone 20 mg tablet Active 40 mg PO daily January 30, 2025 12:00am Start: 01-25-2025 End: 02-01-2025 predniSONE 20 mg oral tablet Dose : 40 mg = 2 tab(s), Oral, qDay, X 7 day(s), # 14 tab(s), 0 Refill(s), 02/01/25 8:16:00 PM EDT Start Date: 01/25/25 Stop Date: 02/01/25 Status: Ordered Quantity: 14.0 Unit: tab(s) Repeat number: 1 Start: 11-30-2023 End: 03-02-2024 prednisone Discontinued 10 m g PO November 30, 2023 12:00am March 02, 2024 11:23am tapering dose from [facility] last tuesday valACYclovir 500 mg oral tablet (4 sources) Herpesvirus Nucleoside Analog DNA Polymerase Inhibitor, Herpes Simplex Virus Nucleoside Analog DNA Polymerase Inhibitor, Herpes Zoster Virus Nucleoside Analog DNA Polymerase Inhibitor Start: 01-25-2025 End: 01-30-2025 take 1 tablet by mouth every twelve hours Valacyclovir 500 mg tablet Active 500 mg PO Q12H January 30, 2025 12:00am Completed/Discontinued Medications Medication Drug Class(es) Dates Sig (Normalized) Sig (Original) amoxicillin 875 mg / clavulanate 125 mg oral tablet (10 sources) Penicillin-class Antibacterial Start: 08-09-2024 End: 09-05-2024 Amoxicillin-Pot Clavulanate 875-125 mg tablet Discontinued 1 {tbl} PO Q12H 20 0 August 09, 2024 1:00am September 05, 2024 12:07pm Start: 01-20-2022 End: 02-10-2022 Amoxicillin-Pot Clavulanate 875-125 mg tablet Discontinued 1 {tbl} PO Q12H 42 21 0 January 20, 2022 12:00am February 09, 2022 12:00am February 10, 2022 12:03am benzonatate 200 mg oral capsule (5 sources) Non-narcotic Antitussive Start: 08-09-2024 End: 09-05-2024 take 1 capsule by mouth three times daily as needed for cough Benzonatate 200 mg capsule Discontinued 200 mg PO THREE TIMES A DAY as needed for cough 30 0 August 09, 2024 1:00am September 05, 2024 12:07pm 12 hr buPROPion hydrochloride 90 mg / naltrexone hydrochloride 8 mg extended release oral tablet (10 sources) Opioid Antagonist, Aminoketone Start: 11-30-2023 End: 03-02-2024 Naltrexone-Bupropi on (Contrave) 8-90 mg tablet extended release Discontinued 2 {tbl} PO TWICE A DAY 360 90 1 November 30, 2023 12:00am March 02, 2024 11:40am Start: 08-10-2023 End: 09-09-2023 Naltrexone-Bupropion (Contra ve) 8-90 mg tablet extended release Discontinued 1 {tbl} PO TWICE A DAY 60 30 0 August 10, 2023 1:00am September 08, 2023 1:00am September 09, 2023 1:05am Take 1 tablet daily x 1 week then increase to BID dexamethasone 6 mg oral tablet (5 sources) Corticosteroid Start: 04-02-2022 End: 04-07-2022 take 1 tablet by mouth once daily Dexamethasone 6 mg tablet Discontinued 6 mg PO DAILY 5 April 02, 2022 12:00am April 07, 2022 3:38pm doxycycline hyclate 20 mg oral tablet (5 sources) Tetracycline-class Drug Start: 08-10-2023 End: 11-30-2023 Doxycycline Hyclate 20 mg tablet Discontinued mg PO August 10, 2023 1:00am November 30, 2023 11:13am fluconazole 150 mg oral tablet (5 sources) Azole Antifungal Start: 01-20-2022 End: 04-02-2022 Fluconazole 150 mg tablet Discontinued 150 mg PO Every 3 Days 2 January 20, 2022 12:00am April 02, 2022 12:55pm hydroCHLOROthiazide 25 mg oral tablet (20 sources) Thiazide Diuretic Start: 11-02-2022 End: 09-05-2024 take 1 tablet by mouth once daily Hydrochlorothiazide 25 mg tablet Discontinued 0 .ROUTE .COMPLEX 90 May 16, 2023 11:03am May 23, 2024 2:30pm TAKE 1 TABLET BY MOUTH EVERY DAY levothyroxine sodium 0.125 mg oral tablet (20 sources) l-Thyroxine Start: 08-11-2023 End: 01-23-2025 Levothyroxine 125 mcg tablet Discontinued 0 .ROUTE .COMPLEX 90 February 06, 2024 4:24pm May 23, 2024 2:30pm TAKE 1/2 tab one day then take 1 tab all other days Start: 09-02-2021 End: 09-02-2021 take 1 capsule by mouth once daily Levothyroxine 125 mcg capsule Discontinued 125 ug PO DAILY September 02, 2021 1:00am September 02, 2021 6:04pm Start: 07-31-2015 End: 08-11-2023 take 1 tablet by mouth once daily Levothyroxine 125 mcg tablet Discontinued 0 .ROUTE .COMPLEX 90 3 August 27, 2022 11:30am August 11, 2023 10:14am TAKE 1 TABLET BY MOUTH EVERY DAY 24 hr metoprolol succinate 50 mg extended release oral tablet (20 sources) beta-Adrenergic Nancy Start: 11-19-2022 End: 01-22-2025 take 1 tablet by mouth every twenty-four hours at bedtime Metoprolol Succinate 50 mg tablet extended release 24 hr Discontinued 50 mg PO AT BEDTIME 90 0 May 03, 2024 12:56pm May 23, 2024 2:30pm Start: 11-02-2022 End: 11-19-2022 take 1 tablet by mouth twice daily Metoprolol Tartrate 50 mg tablet Discontinued 0 .ROUTE .COMPLEX 180 3 November 02, 2022 10:01am November 19, 2022 2:16pm TAKE 1 TABLET BY MOUTH TWICE A DAY Start: 09-02-2021 End: 09-02-2021 take 1 tablet by mouth once daily Metoprolol Tartrate 25 mg tablet Discontinued 25 mg PO DAILY September 02, 2021 1:00am September 02, 2021 6:06pm Start: 04-11-2017 End: 11-02-2022 take 1 tablet by mouth twice daily Metoprolol Tartrate 25 mg tablet Discontinued 0 .ROUTE .COMPLEX 180 3 August 27, 2022 11:30am November 02, 2022 10:02am TAKE 1 TABLET BY MOUTH TWICE A DAY THRIVE MULTIVITAMIN (5 sources) Start: 09-02-2021 End: 11-30-2023 THRIVE MULTIVITAMIN Disconti nued 1 {tbl} PO 1 time daily 0 September 02, 2021 1:00am November 30, 2023 11:14am Start: 09-02-2021 End: 11-30-2023 THRIVE MULTIVITAMIN Disconti nued 1 {tbl} PO 1 time daily September 02, 2021 1:00am November 30, 2023 11:14am Problems Active Problems Problem Classification Problem Date Documented Date Episodic/Chronic Abdominal hernia (11 sources) Hiatal hernia; Translations: [Diaphragmatic hernia without obstruction or gangrene] 08-26-2023 Episodic Allergic reactions (5 sources) Inflammatory dermatosis; Translations: [Dermatitis, unspecified] 11-30-2023 Episodic Chronic obstructive pulmonary disease and bronchiectasis (1 source) Mucopurulent chronic bronchitis; Translations: [Mucopurulent chronic bronchitis] Onset: 03-23-2016 03-23-2016 Chronic Disorders of lipid metabolism (1 source) Hyperlipidemia; Translations: [Hyperlipidemia, unspecified] Onset: 04-02-2009 04-02-2009 Chronic Esophageal disorders (1 source) Gastroesophageal reflux disease; Translations: [Gastro-esophageal reflux disease without esophagitis] Onset: 03-23-2016 03-23-2016 Chronic Essential hypertension (11 sources) Essential hypertension; Translations: [Essential (primary) hypertension] Onset: 01-30-2025 08-26-2023 Chronic Immunizations and screening for infectious disease (5 sources) Needs influenza immunization; Translations: [Encounter for immunization] 08-26-2023 Episodic Comment on above: Does not typically g et it. Has not gotten it in years. Other bone disease and musculoskeletal deformities (5 sources) Osteopenia; Translations: [Other specified disorders of bone density and structure, unspecified site] 05-23-2024 Episodic Other connective tissue disease (5 sources) Neuralgia; Translations: [Neuralgia and neuritis, unspecified] 08-26-2023 Episodic Other connective tissue disease (5 sources) Localized swelling of left upper limb; Translations: [Other specified soft tissue disorders] 08-26-2023 Episodic Other lower respiratory disease (6 sources) Reactive airway disease; Translations: [Respiratory disorder, unspecified] 09-05-2024 Episodic Other lower respiratory disease (6 sources) Cough; Translations: [Cough] 09-05-2024 Episodic Other nervous system disorders (11 sources) Strong's palsy; Translations: [Strong's palsy] Onset: 01-25-2025 Episodic Other nervous system disorders (5 sources) Facial palsy; Translations: [Strong's palsy] 01-30-2025 Episodic Other nervous system disorders (2 sources) Strong's palsy; Translations: [Strong's palsy] Onset: 01-25-2025 Episodic Other nutritional; endocrine; and metabolic disorders (8 sources) Body mass index 30+ - obesity; Translations: [Obesity, unspecified] 08-26-2023 Chronic Other screening for suspected conditions (not mental disorders or infectious disease) (12 sources) Patient encounter status; Translations: [Encounter for screening for malignant neoplasm of colon] Onset: 04-02-2009 08-26-2023 Episodic Other upper respiratory disease (1 source) Chronic rhinitis; Translations: [Chronic rhinitis] Onset: 11-20-2020 11-20-2020 Chronic Other upper respiratory infections (8 sources) Sinusitis; Translations: [Chronic sinusitis, unspecified] 08-09-2024 Chronic Residual codes; unclassified (5 sources) Influenza vaccination declined; Translations: [Immunization not carried out because of patient refusal] 05-23-2024 Episodic Comment on above: Prior poor tolerance following splenectomy Residual codes; unclassified (5 sources) H/O: major abdominal surgery; Translations: [Other specified postprocedural states] 08-26-2023 Episodic Residual codes; unclassified (5 sources) Postmenopausal state; Translations: [Asymptomatic menopausal state] 03-02-2024 Episodic Thyroid disorders (11 sources) Hypothyroidism; Translations: [Hypothyroidism, unspecified] Onset: 01-16-2025 08-26-2023 Chronic Unclassified (3 sources) Facial nerve palsy Unclassified (6 sources) G51.0 - Strong's palsy Unclassified (1 source) Cough, unspecified; Translations: [Cough, unspecified] Onset: 09-03-2024 Viral infection (5 sources) Disease caused by 2019-nCoV; Translations: [COVID-19] 08-26-2023 Episodic Comment on above: 03/29/2022 Past or Other Problems Problem Classification Problem Date Documented Da te Episodic/Chronic Nonspecific chest pain (1 source) Chest pain; Translations: [Chest pain, unspecified] Onset: 01-25-2007 10-30-2024 Episodic Other lower respiratory disease (1 source) Chronic cough; Translations: [Chronic cough] Onset: 03-23-2016 03-23-2016 Episodic Other upper respiratory disease (1 source) Hoarse; Translations: [Dysphonia] Onset: 03-23-2016 03-23-2016 Episodic Other upper respiratory infections (1 source) Acute sinusitis, unspecified; Translations: [Acute sinusitis, unspecified] Onset: 09-26-2024 Episodic Pancreatic disorders (not diabetes) (1 source) Mass of pancreas; Translations: [Other specified diseases of pancreas] Onset: 03-23-2016 03-23-2016 Episodic Residual codes; unclassified (1 source) Asplenia following surgical procedure; Translations: [Acquired absence of spleen] Onset: 03-23-2016 11-20-2020 Episodic Results Test Name Value Interpretation Reference Range Facility Internal Medicine Office Vis itotricia 04-25-2025 Internal Medicine Office Visit [facility] Internal Medicine [address] [place] [address] [place] [address] OFFICE VISIT Date of Service: 04/25/25 MR#: [id number] Acct: [id number] Name: VANIA MALONE Rep #: [id number] : 1960 Provider: Dr. 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 Accompanied by: Self Is patient in pain?: No Allergies No Known Allergies Allergy (Verified 04/25/25 13:24) Medications ???Medication ???Instructions ???Recorded ???Confirmed ???Type omeprazole 20 mg capsule,delayed 20 mg PO DAILY 09/02/21 04/25/25 H istory release calcium 600 mg (as 1 tab PO QDAY 05/23/24 04/25/25 Hi story carbonate)-vitamin D3 20 mcg (800 unit) tablet albuterol 90 mcg-budesonide 80 2 inh inhalation ONCE #5.9 grams 0 09/05/24 04/25/25 Rx mcg/actuation HFA aerosol inhaler (Airsupra) hydrochlorothiazide 25 mg tablet See Rx Instructions .Route 5 04/25/25 History .COMPLEX PRN nyquil HBP PO QHS PRN 03/05/25 10/23/25 Histo ry metoprolol succinate 50 mg 50 mg PO QHS #90 tabs 01/22/25 Rx tablet,extended release 24 hr levothyroxine 125 mcg tablet See Rx Instructions .Route 5 04/25/25 Rx .COMPLEX #90 tabs PFSH Medical History Strong's palsy Facial nerve palsy Hiatal hernia with GERD Flu vaccine refused Osteopenia Post-menopausal Encounter for vitamin deficiency screening Dermatitis Wears glasses Thyroid disease Arthritis History of hiatal hernia GERD (gastroesophageal reflux disease) Non-smoker History of stress test ( 2004) Hypertension History of injury of tendon Obesity (BMI 30-39.9) Flu vaccine need Health care maintenance Left axillary swelling Colon cancer screening COVID Neuralgia Sinusitis Preventative health care Hiatal hernia History of pneumonia Hernia Surgical History History of cardiac catheterization ( 2004) History of tonsillectomy History of colonoscopy History of pancreatic surgery ( 2004) History of splenectomy History of partial splenectomy Family History Aunt Colon cancer Other Cancer Diabetes Heart disease Hypertension Social History Smoking Status: Never smoker alcohol intake: never substance use type: does not use what type of physical activity do you participate in: none HPI HPI Chief Complaint: fu Details: VANIA MALONE, is a 65-year-old female with a history of recurrent Strong's palsy, HTN, and hiatal hernia, presenting for follow-up. The patient reports ongoing recovery from Strong's palsy, noting improvement in symptoms over the past weeks. She can now eat without difficulty and has seen a neurologist, who performed a brain scan that returned normal results. The neurologist indicated that the Strong's palsy is recurrent and did not recommend further treatment at this time. The patient expresses reluctance to consider Botox injections. She has been taking omeprazole for 20 years for acid reflux following hiatal hernia surgery and has not experienced any reflux symptoms since starting the medication. She denies a history of Cifuentes's esophagus. She inquires about the long-term use of omeprazole and potential side effects. The patient also mentions receiving a letter indicating that it is time for her mammogram and requests an order for the screening. She notes a family history of breast cancer, with a cousin who from the disease. History of hypertension and BP has been elevated recently, with diastolic readings today at 100 mmHg. She attributes this to stress from work but has not been monitoring her BP regularly at home. She is currently taking metoprolol and hydrochlorothiazide for BP management. She takes hydrochlorothiazide approximately once a week, primarily when she feels swollen, and took a dose this morning. She expresses difficulty taking the medication consistently due to its diuretic effects, which are inconvenient during meetings. The patient exercises twice a week with a retail personal banker and engages in brisk walking. She has been cooking more at home, reducing her intake of prepared foods, and has decreased her cristiane (more content not included)... [facility] 02-25-2025 [facility] Telephone (AGGENS4) VANIA MALONE ([id number]) 1960 F Date Time Provider Department 02/25/25 JELENA CASTELAN AGGENS4 During your visit today, we recorded the following information about you: Mele Montero 02/25/2025 12:54 PM Signed Rtn pt call LVM Allergies As of Date: 02/25/2025 (No Known Allergies) Date Reviewed: 01/09/2021 Reviewed by: Astrid Herndon MD - Fully Assessed Reason for Visit: Returning Patient's Call [[phone]] Cmt: Rtn pt call LVM Prescriptions as of 02/25/2025 - metoprolol tartrate, short acting, (LOPRESSOR) 25 mg tablet TAKE 1 TABLET BY MOUTH TWICE DAILY. - omeprazole (PRILOSEC) 20 mg capsule Take 1 capsule by mouth every morning. - levothyroxine (SYNTHROID) 125 mcg tablet Take 125 mcg by mouth once daily. Problem List As Of Date 02/25/2025 Noted Resolved CHEST PAIN NOS [R07.9] 01/25/2007 Hyperlipidemia [E78.5] 04/02/2009 Elevated Serum Creatinine [R79.89] 04/02/2009 Chronic cough [R05.3] 03/23/2016 Hoarseness of voice [R49.0] 03/23/2016 Asplenia after surgical procedure [Z90.81] 03/23/2016 Pancreatic mass [K86.89] 03/23/2016 Bronchitis, mucopurulent recurrent (HCC) [J41.1]03/23/2016 Gastroesophageal reflux disease [K21.9] 03/23/2016 Chronic rhinitis [J31.0] 11/20/2020 Encounter Status:Closed by MELE MONTERO on 02/25/25 [facility]ER[facility] 02-08-2025 Lyme Total Antibody LOTTIE Negative Normal Negative [facility] Comment on above: Result Comment: Lyme antibodies not detected. Reflex testing is not indicated. No laboratory evidence of infection with B. burgdorferi (Lyme disease). Negative results may occur in patients recently infected (less than or equal to 14 days) with B. burgdorferi. If recent infection is suspected, repeat testing on a new sample collected in 7 to 14 days is recommended. Performed At: [facility] [id number] Brisa Zee PhD Ph:[phone] Performed By: #### 1 [id number] #### [place] [address] Magnetic resonance imaging r eportOrdered By: Navneet Marques on 02-06-2025 Study report [facility] Imaging Services [address] [place] [id number] Brain W/WO Contrast MR#: [id number] Acct: [id number] Name: VANIA MALONE Rep #: [id number] : 1960 F 64 From: Bird Marques MD PCP: Dr. Michelle Vanegas MD Status: R EG CLI Study:Brain W/WO Contrast Date of Exam: 02/05/25 Exam# [id number] Ordering Dr: Donald Vanegas MD PROCEDURE: BRAIN W/WO CONTRAST 02/05/2025 REASON FOR EXAM: RECURRENT STRONG'S PALSY TECHNIQUE: BRAIN W/WO CONTRAST Multiplanar and multisequence images were obtained. CONTRAST: Clariscan VOLUME: 18 mL FINDINGS: There is abnormal enhancement of the right facial nerve within the right temporal bone, consistent with Strong's palsy. There are scattered punctate foci of abnormal periventricular and subcortical white matter signal in both cerebral hemispheres consistent with chronic ischemic white matter disease. There is a normal sulcal pattern and gyral configuration. There is no evidence of acute intracranial hemorrhage or infarction. The green-white differentiation is well preserved. There is no evidence of restricted diffusion. The ventricles and basilar cisterns are normal. There are normal flow voids demonstrated in the recognized intracranial vessels. The cerebellum and brainstem are unremarkable. The cerebellar pontine angles arenormal. The craniovertebral junction is normal. The sella and suprasellar regions are normal. The orbits and retro-orbital regions are unremarkable. The nasal septum is midline. There is no significant paranasal sinus disease. The mastoid air cells are clear. There is normal bone marrow signal in the skull base and calvarium. MRI/Brain W/WO Contrast IMPRESSION: 1. 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 2. Other findings as noted. Reading Location: [facility] CC: Dr. Michelle Vanegas MD ~ Illuminator: Signed [facility] Work Phone: Brain W/WO Contraston 2024 Brain W/WO Contrast [facility] Imaging Services [address] [place] [id number] Brain W/WO Contrast MR#: [id number] Acct: [id number] Name: VANIA MALONE Rep #: [id number] : 1960 F 64 From: Navneet Marques MD PCP: Dr. Michelle Vanegas MD Status: REG CLI Study: Brain W/WO Contrast Date of Exam: 02/05/25 Exam# [id number] Ordering Dr: Michelle Vanegas MD PROCEDURE: BRAIN W/WO CONTRAST 02/05/2025 REASON FOR EXAM: RECURRENT STRONG'S PALSY TECHNIQUE: BRAIN W/WO CONTRAST Multiplanar and multisequence images were obtained. CONTRAST: Clariscan VOLUME: 18 mL FINDINGS: There is abnormal enhancement of the right facial nerve within the right temporal bone, consistent with Strong's palsy. There are scattered punctate foci of abnormal periventricular and subcortical white matter signal in both cerebral hemispheres consistent with chronic ischemic white matter disease. There is a normal sulcal pattern and gyral configuration. There is no evidence of acute intracranial hemorrhage or infarction. The green-white differentiation is well preserved. There is no evidence of restricted diffusion. The ventricles and basilar cisterns are normal. There are normal flow voids demonstrated in the recognized intracranial vessels. The cerebellum and brainstem are unremarkable. The cerebellar pontine angles are normal. The craniovertebral junction is normal. The sella and suprasellar regions are normal. The orbits and retro-orbital regions are unremarkable. The nasal septum is midline. There is no significant paranasal sinus disease. The mastoid air cells are clear. There is normal bone marrow signal in the skull base and calvarium. MRI/Brain W/WO Contrast IMPRESSION: 1. 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 2. Other findings as noted. Reading Location: [facility] CC: Dr. Michelle Vanegas MD Illuminator: Signed Normal [facility] LAVELLE w/ Reflex Mult Confirmon 02-01-2025 ANTI-DNA (DS)AB TNP Normal [facility] Comment on above: Performed By: #### L 3100.5450, L101.9900, L501.6710 #### [facility] Laboratory [address] [place], [place], [id number] ANTI-SS-A TNP Normal [facility] Comment on above: Performed By: #### L 3100.5450, L101.9900, L501.6710 #### [facility] [address] [place], [address] ANTI-SS-B TNP Normal [facility] Comment on above: Performed By: #### L 3100.5450, L101.9900, L501.6710 #### [facility] [address] [place], [place], [id number] Absolute lymphocyte countOrd ered By: Tylervinbrent Vanegas on 01-30-2025 Lymphocytes Auto (Unsp spec) [#/Vol] 4.81 10*3/uL High 0.83-4.51 [facility] Absolute neutrophil countOrd ered By: drakehillsboroughbrent Vanegas on 01-30-2025 Neutrophils (Bld) [#/Vol] 11.8 10*3/uL High 2.0-7.7 [facility] Anion gap in Serum or Plasma Ordered By: Michelle Vanegas on 01-30-2025 Anion gap [Moles/Vol] 12 mmol/L 5-15 [facility] Automated lymphocyte count a s percentage of total leukocytesOrdered By: Michelle Vanegas on 01-30-2025 Lymphocytes/100 WBC Auto (Unsp spec) 26.2 % 19-41 [facility] BUN/creatinine ratioOrdered By: drakehillsboroughbrent Vanegas on 01-30-2025 Urea nitrogen/Creatinine [Mass ratio] 19.0 mg/mg 10-20 [facility] Basophil percentageOrdered B y: Michelle Vanegas on 01-30-2025 Basophils/100 WBC (Bld) 0.3 % 0-1 [facility] Bilirubin, totalOrdered By: Michelle Vanegas on 01-30-2025 Bilirubin [Mass/Vol] 0.31 mg/dL 0.00-1.30 [facility] CBC W/Diff, Automatedon 01-03 Absolute Lymph 4.81 X10 3/uL High 0.83-4.51 [facility] Comment on above: Performed By: #### L 100.0100, L500.4050 ####[facility] [address] [place], [address] Absolute Neut 11.8 X10 3/uL High 2.0-7.7 [facility] Comment on above: Performed By: #### L 100.0100, L500.4050 ####[facility] [address] [place], [address] Basophils/100 WBC (Bld) 0.3 % Normal 0-1 [facility] Comment on above: Performed By: #### L 100.0100, L500.4050 ####[facility] [address] [place], [address] Eosinophils/100 WBC (Bld) 0.1 % Normal 0-5 [facility] Comment on above: Performed By: #### L 100.0100, L500.4050 ####[facility] [address] [place], [address] Erythrocyte distribution width (RBC) [Ratio] 13.6 % Normal 11.6-14.6 [facility] Comment on above: Performed By: #### L 100.0100, L500.4050 ####[facility] [address] [place], [address] Hematocrit (Bld) [Volume fraction] 42.2 % Normal 37-47 [facility] Comment on above: Performed By: #### L 100.0100, L500.4050 ####[facility] [address] [place], [address] Hemoglobin (Bld) [Mass/Vol] 13.8 g/dL Normal 12.0-15.0 [facility] Comment on above: Performed By: #### L 100.0100, L500.4050 ####[facility] [address] [place], [address] IG% 0.800 Normal 0.0-0.9 [facility] Comment on above: Result Comment: IG% - Immature Granulocytes (promyelocytes, myelocytes and metamyelocytes) > 1% indicates that a LEFT SHIFT is Present. Performed By: #### L 100.0100, L500.4050 ####[facility] [address] [place], [address] Lymphocytes/100 WBC (Bld) 26.2 % Normal 19-41 [facility] Comment on above: Performed By: #### L 100.0100, L500.4050 ####[facility] [address] [place], [address] MCH (RBC) [Entitic mass] 29.6 pg Normal 27.0-32.0 [facility] Comment on above: Performed By: #### L 100.0100, L500.4050 ####[facility] [address] [place], [address] MCHC (RBC) [Mass/Vol] 32.7 g/dL Normal 32-36 [facility] Comment on above: Performed By: #### L 100.0100, L500.4050 ####[facility] [address] [place], [address] MCV (RBC) [Entitic vol] 90.6 fL Normal 81-99 [facility] Comment on above: Performed By: #### L 100.0100, L500.4050 ####[facility] [address] [place], [address] Monocytes/100 WBC (Bld) 8.0 % Normal 0-10 [facility] Comment on above: Performed By: #### L 100.0100, L500.4050 ####[facility] [address] [place], [address] Neutrophils/100 WBC (Bld) 64.6 % Normal 47-70 [facility] Comment on above: Performed By: #### L 100.0100, L500.4050 ####[facility] [address] [place], [address] Nucleated RBC (Bld) [#/Vol] 0 10*3/uL Normal 0-5 [facility] Comment on above: Performed By: #### L 100.0100, L500.4050 ####[facility] [address] [place], [address] Platelet mean volume (Bld) [Entitic vol] 11.1 fL Normal 6.2-12.0 [facility] Comment on above: Performed By: #### L 100.0100, L500.4050 ####[facility] [address] [place], [address] Platelets (Bld) [#/Vol] 399 10*3/uL Normal 150-450 [facility] Comment on above: Performed By: #### L 100.0100, L500.4050 ####[facility] [address] [place], [address] RBC (Bld) [#/Vol] 4.66 10*6/uL Normal 4.2-5.4 [facility] Comment on above: Performed By: #### L 100.0100, L500.4050 ####[facility] [address] [place], [address] RDW SD 45.0 fl High 35.1-43.9 [facility] Comment on above: Performed By: #### L 100.0100, L500.4050 ####[facility] [address] [place], [address] WBC (Bld) [#/Vol] 18.3 10*3/uL High 4.4-11.0 [facility] Comment on above: Performed By: #### L 100.0100, L500.4050 ####[facility] [address] [place], [address] CRPon 01-30-2025 C-REACTIVE PROT < 3.00 Normal 0.0-3.0 [facility] Comment on above: Performed By: #### L 3100.5450, L101.9900, L501.6710 ####[facility] [address] [place], [address] Carbon dioxide, total [Moles /volume] in Central venous bloodOrdered By: Michelle Vanegas on 01-30-2025 CO2 [Moles/Vol] 23.0 mmol/L 21.0-32.0 [facility] Chloride assayOrdered By: Anthony Vanegas on 01-30-2025 Chloride [Moles/Vol] 108 mmol/L 98-108 [facility] Comprehensive Metabolic Prof ilon 01-30-2025 Albumin [Mass/Vol] 4.2 g/dL Normal 3.4-4.8 [facility] Comment on above: Performed By: #### L 100.0100, L500.4050 ####[facility] [address] [place], [address] Albumin/Globulin [Mass ratio] 1.6 {ratio} Normal 0.9-2.4 [facility] Comment on above: Performed By: #### L 100.0100, L500.4050 ####[facility] [address] [place], [address] ALK PHOS 66 U/L Normal 35-104 [facility] Comment on above: Performed By: #### L 100.0100, L500.4050 ####[facility] [address] [place], [address] ALT [Catalytic activity/Vol] 25 U/L Normal <=34 [facility] Comment on above: Performed By: #### L 100.0100, L500.4050 ####[facility] [address] [place], [address] AST [Catalytic activity/Vol] 17 U/L Normal <=31 [facility] Comment on above: Performed By: #### L 100.0100, L500.4050 ####[facility] [address] [place], [address] Bilirubin [Mass/Vol] 0.31 mg/dL Normal 0.00-1.30 [facility] Comment on above: Performed By: #### L 100.0100, L500.4050 ####[facility] [address] [place], [address] BUN/CRE 19.0 RATIO Normal 10-20 [facility] Comment on above: Performed By: #### L 100.0100, L500.4050 ####[facility] [address] [place], [address] Calcium [Mass/Vol] 9.6 mg/dL Normal 7.6-11.0 [facility] Comment on above: Performed By: #### L 100.0100, L500.4050 ####[facility] [address] [place], [address] Chloride [Moles/Vol] 108 mmol/L Normal 98-108 [facility] Comment on above: Performed By: #### L 100.0100, L500.4050 ####[facility] [address] [place], [address] CO2 [Moles/Vol] 23.0 mmol/L Normal 21.0-32.0 [facility] Comment on above: Performed By: #### L 100.0100, L500.4050 ####[facility] [address] [place], [address] Creatinine [Mass/Vol] 1.07 mg/dL Normal 0.70-1.20 [facility] Comment on above: Performed By: #### L 100.0100, L500.4050 ####[facility] [address] [place], [address] GAP 12 Normal 5-15 [facility] Comment on above: Performed By: #### L 100.0100, L500.4050 ####[facility] [address] [place], [address] GFR/1.73 sq M.predicted among non-blacks MDRD (S/P/Bld) [Vol rate/Area] 59 mL/min/{1.73_m2} Low >60 [facility] Comment on above: Result Comment: mL/m in/1.73m2 CKD-EPI Creatinine Equation (2020) Performed By: #### L 100.0100, L500.4050 ####[facility] [address] [place], [address] Globulin (S) [Mass/Vol] 2.7 g/dL Normal 2.2-4.2 [facility] Comment on above: Performed By: #### L 100.0100, L500.4050 ####[facility] [address] [place], [address] Glucose [Mass/Vol] 84 mg/dL Normal 70-99 [facility] Comment on above: Performed By: #### L 100.0100, L500.4050 ####[facility] [address] [place], [address] Potassium [Moles/Vol] 4.2 mmol/L Normal 3.3-5.1 [facility] Comment on above: Performed By: #### L 100.0100, L500.4050 ####[facility] [address] [place], [address] Sodium [Moles/Vol] 143 mmol/L Normal 133-145 [facility] Comment on above: Performed By: #### L 100.0100, L500.4050 ####[facility] [address] [place], [address] T PROT 6.9 g/dL Normal 5.9-8.4 [facility] Comment on above: Performed By: #### L 100.0100, L500.4050 ####[facility] [address] [place], [place], [id number] Urea nitrogen [Mass/Vol] 20 mg/dL High 4-19 [facility] Comment on above: Performed By: #### L 100.0100, L500.4050 ####[facility] [address] [place], [address] Eosinophil percentageOrdered By: Michelle Vanegas on 01-30-2025 Eosinophils/100 WBC (Bld) 0.1 % 0-5 [facility] Erythrocyte Sed Rateon 01-30 SED RATE < 1 Normal [facility] Comment on above: Performed By: #### L 3100.5450, L101.9900, L501.6710 #### [facility] [address] [place], [place], [id number] Erythrocyte distribution wid th ratioOrdered By: Michelle Vanegas on 01-30-2025 Erythrocyte distribution width (RBC) [Ratio] 13.6 % 11.6-14.6 [facility] Erythrocyte distribution wid th standard deviationOrdered By: Michelle Vanegas on 01-30-2025 Erythrocyte distribution width (RBC) [Ratio] 45.0 fl High 35.1-43.9 [facility] Erythrocyte sedimentation ra teOrdered By: Michelle Vanegas on 01-30-2025 ESR (Bld) [Velocity] mm/h [facility] Glomerular filtration rate ( GFR) estimation/1.73 sq m using serum, plasma, or whole bOrdered By: Michelle Vanegas on 01-30-2025 GFR/1.73 sq M.predicted among non-blacks MDRD (S/P/Bld) [Vol rate/Area] 59 mL/min/{1.73_m2} Low >60 [facility] Comment on above: mL/min/1.73m2 CKD-EP I Creatinine Equation (2020) Hematocrit Auto (Bld) [Volum e fraction]Ordered By: Michelle Vanegas on 01-30-2025 Hematocrit (Bld) [Volume fraction] 42.2 % 37-47 [facility] Hemoglobin measurementOrdere d By: Angelibrent Robersonshiradonald on 01-30-2025 Hemoglobin (Bld) [Mass/Vol] 13.8 g/dL 12.0-15.0 [facility] Immature granulocytes/100 WB C Auto (Bld)Ordered By: Michelle Vanegas on 01-30-2025 Immature granulocytes/100 WBC (Bld) 0.800 % 0.0-0.9 [facility] Comment on above: IG% - Immature Granu locytes (promyelocytes, myelocytes and metamyelocytes) > 1% indicates that a LEFT SHIFT is Present. Internal Medicine Office Vis tosha 01-30-2025 Internal Medicine Office Visit [facility] [address] [place] [address] [place] [address] OFFICE VISIT Date of Service: 01/30/25 MR#: [id number] Acct: [id number] Name: VANIA MALONE Rep #: [id number] : 1960 Provider: Dr. Michelle bah MD Age/Sex: 64/F Location: [facility] Status: Signed Intake Vital Signs 01/16/25 16:00 01/30/25 09:13 Height 5 ft 3 in 5 ft 3 in Weight: 204 lb BMI 36.1 BP 142/94 H Blood Pressure Location Lt brachial Position Sitting Respiration 16 Pulse 64 Pulse Source Monitor Temp 97.3 F L Temp Source Temporal Pulse Oximetry (%) 97 Oxygen Delivery Method room air Intake Visit Reasons: HOSP FU Chief Complaint: Facial asymmetry 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 Is patient in pain?: No Allergies No Known Allergies Allergy (Verified 01/30/25 08:57) Medications ???Medication ???Instructions ???Recorded ???Confirmed ???Type omeprazole 20 mg capsule,delayed 20 mg PO DAILY 09/02/21 01/30/25 H istory release calcium 600 mg (as 1 tab PO QDAY 05/23/24 01/30/25 Hi story carbonate)-vitamin D3 20 mcg (800 unit) tablet albuterol 90 mcg-budesonide 80 2 inh inhalation ONCE #5.9 grams 0 09/05/24 01/30/25 Rx mcg/actuation HFA aerosol inhaler (Airsupra) codeine 10 mg-guaifenesin 100 mg/5 10 ml PO Q6H PRN cough #120 mL 0 09/05/24 01/30/25 Rx mL oral liquid (Guaifenesin AC) hydrochlorothiazide 25 mg tablet See Rx Instructions .Route 5 01/30/25 History .COMPLEX PRN nyquil HBP PO QHS PRN 09/05/24 01/30/25 Histo ry metoprolol succinate 50 mg 50 mg PO QHS #90 tabs 01/22/25 Rx tablet,extended release 24 hr levothyroxine 125 mcg tablet See Rx Instructions .Route 5 01/30/25 Rx .COMPLEX #90 tabs prednisone 20 mg tablet 40 mg PO QDAY 01/30/25 01/30/25 Hi story valacyclovir 500 mg tablet 500 mg PO Q12H 01/30/25 01/30/25 H istory PFSH Medical History (Updated 01/30/25 @ 09:[address] Michelle Vanegas MD) Strong's palsy Facial nerve palsy Hiatal hernia with GERD Flu vaccine refused Osteopenia Post-menopausal Encounter for vitamin deficiency screening Dermatitis Wears glasses Thyroid disease Arthritis History of hiatal hernia GERD (gastroesophageal reflux disease) Non-smoker History of stress test ( 2004) Hypertension History of injury of tendon Obesity (BMI 30-39.9) Flu vaccine need Health care maintenance Left axillary swelling Colon cancer screening COVID Neuralgia Sinusitis Preventative health care Hiatal hernia History of pneumonia Hernia Surgical History History of cardiac catheterization ( 2004) History of tonsillectomy History of colonoscopy History of pancreatic surgery ( 2004) History of splenectomy History of partial splenectomy Family History Aunt Colon cancer Other Cancer Diabetes Heart disease Hypertension Social History Smoking Status: Never smoker alcohol intake: never substance use type: does not use what type of physical activity do you participate in: none HPI HPI Chief Complaint: Facial asymmetry Details: VANIA MALONE, is a 64-year-old female presenting with facial asymmetry and difficulty with eye closure, suspected to be Strong's Palsy. The symptoms began while the patient was in [place] for work, initially mild but progressively worsening during her flight back to the [facility]. Upon arrival, she went to the emergency room where Strong's Palsy was diagnosed, and treatment with prednisone and valacyclovir was initiated. The patient reports a history of a similar episode occurring several years ago, which resolved over two to three weeks. She recalls undergoing a head scan at that time, but details are vague. The current episode has shown minimal improvement despite medication, with persistent difficulty in eye closure and facial asymmetry. The patient has been using eye drops frequently and an eye patch at night to manage symptoms. She has also experienced increased fatigue. Attestation: Documentation on this patient encounter was supported using ambient scribe technology/ voice AI technology. The patient consented to recording for the purpose of documenting the encounter. Provider reviewed content of the generated note prior to signature. ROS Const Constitutional: No body ache, chills, excessive sweating, fatigue, fever(s), frequent falls, headache(s), snoring, weakness, sleep problems or change in appetite Eyes Eyes: Positive for dry eyes; No blurry vision, change in vision, vision loss, eye pain or Light sensitivity ENT ENT: Positive for other; No abnormal hearing, (more content not included)... Normal [facility] Laboratory - Chemistry and C hemistry - challengeOrdered By: Michelle Vanegas on 01-30-2025 AST [Catalytic activity/Vol] 17 U/L <32 [facility] MCV (mean corpuscular volume ) determinationOrdered By: Michelle Vanegas on 01-30-2025 MCV (RBC) [Entitic vol] 90.6 fL 81-99 [facility] Mean corpuscular hemoglobin (MCH) determinationOrdered By: Michelle Vanegas on 01-30-2025 MCH (RBC) [Entitic mass] 29.6 pg 27.0-32.0 [facility] Mean corpuscular hemoglobin concentration (MCHC) determinationOrdered By: Michelle Vanegas on 01-30-2025 MCHC (RBC) [Mass/Vol] 32.7 g/dL 32-36 [facility] Mean platelet volume determi nationOrdered By: Michelle Vanegas on 01-30-2025 Platelet mean volume (Bld) [Entitic vol] 11.1 fL 6.2-12.0 [facility] Monocyte percentageOrdered B y: Michelle Vanegas on 01-30-2025 Monocytes/100 WBC (Bld) 8.0 % 0-10 [facility] Neutrophil percentageOrdered By: Michelle Vanegas on 01-30-2025 Neutrophils/100 WBC (Bld) 64.6 % 47-70 [facility] Nucleated red blood cell per centageOrdered By: Michelle Vanegas on 01-30-2025 Nucleated RBC/100 WBC (Bld) [Ratio] 0 % 0-5 [facility] Platelet countOrdered By: Anthony draketree Vanegas on 01-30-2025 Platelets (Bld) [#/Vol] 399 10*3/uL 150-450 [facility] Potassium measurement (mass/ volume)Ordered By: Michelle Vanegas on 01-30-2025 Potassium (Unsp spec) [Mass/Vol] 4.2 mmol/L 3.3-5.1 [facility] RBC Auto (Bld) [#/Vol]Ordere d By: Michelle Vanegas on 01-30-2025 RBC (Bld) [#/Vol] 4.66 10*6/uL 4.2-5.4 [facility] Serum DNA double strand anti body assay (units/volume)Ordered By: Michelle Vanegas on 01-30-2025 DNA double strand Ab Qn (S) [facility] Comment on above: Test not performed Serum Scl-70 antibody assay (units/volume)Ordered By: Michelle Vanegas on 01-30-2025 SCL-70 extractable nuclear Ab Qn (S) [facility] Comment on above: Test not performed Serum creatinine measurement (mass/volume)Ordered By: Michelle Vanegas on 01-30-2025 Creatinine [Mass/Vol] 1.07 mg/dL 0.70-1.20 [facility] Serum globulin measurementOr dered By: Michelle Vanegas on 01-30-2025 Globulin (S) [Mass/Vol] 2.7 g/dL 2.2-4.2 [facility] Serum glucose measurement (m ass/volume)Ordered By: Michelle Vanegas on 01-30-2025 Glucose [Mass/Vol] 84 mg/dL 70-99 [facility] Serum or plasma C reactive p rotein measurement (mass/volume)Ordered By: Michelle Vanegas on 01-30-2025 CRP [Mass/Vol] mg/L 0.0-3.0 [facility] Serum or plasma alanine rowell otransferase (ALT) measurementOrdered By: Michelle Vanegas on 01-30-2025 ALT [Catalytic activity/Vol] 25 U/L <35 [facility] Serum or plasma albumin tatum urement (mass/volume)Ordered By: Michelle Vanegas on 01-30-2025 Albumin [Mass/Vol] 4.2 g/dL 3.4-4.8 [facility] Serum or plasma albumin/glob ulin mass ratioOrdered By: Michelle Vanegas 01-30-2025 Albumin/Globulin [Mass ratio] 1.6 {ratio} 0.9-2.4 [facility] Serum or plasma alkaline susanna sphatase measurementOrdered By: Michelle Vanegas 01-30-2025 ALP [Catalytic activity/Vol] 66 U/L 35-104 [facility] Serum or plasma calcium tatum urement (mass/volume)Ordered By: Michelle Vanegas on 01-30-2025 Calcium [Mass/Vol] 9.6 mg/dL 7.6-11.0 [facility] Serum or plasma urea nitroge n measurement (mass/volume)Ordered By: Michelle Vanegas on 01-30-2025 Urea nitrogen [Mass/Vol] 20 mg/dL High 4-19 [facility] Sodium levelOrdered By: Tyler Vanegas on 01-30-2025 Sodium [Moles/Vol] 143 mmol/L 133-145 [facility] Total proteinOrdered By: Jean Vanegas on 01-30-2025 Protein [Mass/Vol] 6.9 g/dL 5.9-8.4 [facility] White blood cell (WBC) count Ordered By: Michelle Vanegas on 01-30-2025 WBC (Bld) [#/Vol] 18.3 10*3/uL High 4.4-11.0 [facility] Office Vis itotricia 01-16-2025 Internal Medicine Office Visit [facility] [address] [place] [address] [place] [address] OFFICE VISIT Date of Service: 01/16/25 MR#: [id number] Acct: [id number] Name: VANIA MALONE Rep #: [id number] : 1960 Provider: Dr. 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 Accompanied by: Self Is patient in pain?: No Allergies No Known Allergies Allergy (Verified 01/16/25 15:55) Medications ???Medication ???Instructions ???Recorded ???Confirmed ???Type omeprazole 20 mg capsule,delayed 20 mg PO DAILY 09/02/21 01/16/25 H istory release calcium 600 mg (as 1 tab PO QDAY 05/23/24 01/16/25 Hi story carbonate)-vitamin D3 20 mcg (800 unit) tablet levothyroxine 125 mcg tablet See Rx Instructions .Route 4 01/16/25 Rx .COMPLEX #90 tabs metoprolol succinate 50 mg 50 mg PO QHS #90 tabs 05/23/24 Rx tablet,extended release 24 hr albuterol 90 mcg-budesonide 80 2 inh inhalation ONCE #5.9 grams 0 09/05/24 01/16/25 Rx mcg/actuation HFA aerosol inhaler (Airsupra) codeine 10 mg-guaifenesin 100 mg/5 10 ml PO Q6H PRN cough #120 mL 0 09/05/24 01/16/25 Rx mL oral liquid (Guaifenesin AC) hydrochlorothiazide 25 mg tablet See Rx Instructions .Route 5 01/16/25 History .COMPLEX PRN nyquil HBP PO QHS PRN 09/05/24 01/16/25 Histo ry PFSH Medical History (Updated 01/16/25 @ 17:[address] Michelle Vanegas MD) Hiatal hernia with GERD Flu vaccine refused Osteopenia Post-menopausal Encounter for vitamin deficiency screening Dermatitis Wears glasses Thyroid disease Arthritis History of hiatal hernia GERD (gastroesophageal reflux disease) Non-smoker History of stress test ( 2004) Hypertension History of injury of tendon Obesity (BMI 30-39.9) Flu vaccine need Health care maintenance Left axillary swelling Colon cancer screening COVID Neuralgia Sinusitis Preventative health care Hiatal hernia History of pneumonia Hernia Surgical History History of cardiac catheterization ( 2004) History of tonsillectomy History of colonoscopy History of pancreatic surgery ( 2004) History of splenectomy History of partial splenectomy Family History Aunt Colon cancer Other Cancer Diabetes Heart disease Hypertension Social History Smoking Status: Never smoker alcohol intake: never substance use type: does not use what type of physical activity do you participate in: none HPI HPI Chief Complaint: Follow-up Details: VANIA MALONE, is a 64-year-old female presenting for management of chronic conditions. Hypertension is managed with metoprolol, taken consistently every night. Hydrochlorothiazide is used intermittently when the patient feels fluid retention. Hypothyroidism is managed with levothyroxine, taken regularly. Gastroesophageal Reflux Disease (GERD) is controlled with omeprazole, with no current symptoms reported. The patient has a known hernia, but symptoms are well-managed with medication. The patient engages in regular physical activity, including personal training twice a week and volunteering for baseball activities. Recent body composition analysis showed increased muscle mass and decreased fat percentage. Attestation: Documentation on this patient encounter was supported using ambient scribe technology/ voice AI technology. The patient consented to recording for the purpose of documenting the encounter. Provider reviewed content of the generated note prior to signature. ROS Const Constitutional: No body ache, excessive sweating, fatigue, fever(s), frequent falls, headache(s), snoring, weakness, weight change, sleep problems or change in appetite Eyes Eyes: No blurry vision, change in vision, vision loss, dry eyes, eye pain or Light sensitivity ENT ENT: No abnormal hearing, ear or mastoid pain, tinnitus, dizziness/vertigo, nasal congestion, headache(s), neck pain or sore throat Resp Respiratory: No cough, excessive phlegm production, hemoptysis, shortness of breath, snoring or wheezing Cardio Cardiology: No chest pain at rest, chest pain with exertion, excessive sweating, shortness of breath, dyspnea on exertion, lightheadedness, orthopnea or palpitations Ellis (more content not included)... Normal [facility] Absolute lymphocyte countOrd ered By: Michelle Vanegas on 09-26-2024 Lymphocytes Auto (Unsp spec) [#/Vol] 3.38 10*3/uL 0.83-4.51 [facility] Absolute neutrophil countOrd ered By: Michelle Vanegas on 09-26-2024 Neutrophils (Bld) [#/Vol] 5.1 10*3/uL 2.0-7.7 [facility] Anion gap in Serum or Plasma Ordered By: Michelle Vanegas on 09-26-2024 Anion gap [Moles/Vol] 10 mmol/L 5-15 [facility] Automated lymphocyte count a s percentage of total leukocytesOrdered By: Michelle Vanegas on 09-26-2024 Lymphocytes/100 WBC Auto (Unsp spec) 33.6 % 19-41 [facility] BUN/creatinine ratioOrdered By: Michelle Vanegas on 09-26-2024 Urea nitrogen/Creatinine [Mass ratio] 23.9 mg/mg High 10-20 [facility] Basophil percentageOrdered B y: Michelle Vanegas on 09-26-2024 Basophils/100 WBC (Bld) 1.2 % High 0-1 [facility] Bilirubin, totalOrdered By: Michelle Vanegas on 09-26-2024 Bilirubin [Mass/Vol] 0.23 mg/dL 0.00-1.30 [facility] CBC W/Diff, Automatedon 09-02 Absolute Lymph 3.38 X10 3/uL Normal 0.83-4.51 [facility] Comment on above: Performed By: #### L 100.0100, L500.4100, L501.9520, L500.4050 #### [facility] [address] [place], [address] Absolute Neut 5.1 X10 3/uL Normal 2.0-7.7 [facility] Comment on above: Performed By: #### L 100.0100, L500.4100, L501.9520, L500.4050 #### [facility] [address] [place], [address] Basophils/100 WBC (Bld) 1.2 % High 0-1 [facility] Comment on above: Performed By: #### L 100.0100, L500.4100, L501.9520, L500.4050 #### [facility] [address] [place], [address] Eosinophils/100 WBC (Bld) 5.1 % High 0-5 [facility] Comment on above: Performed By: #### L 100.0100, L500.4100, L501.9520, L500.4050 #### [facility] [address] [place], [address] Erythrocyte distribution width (RBC) [Ratio] 13.7 % Normal 11.6-14.6 [facility] Comment on above: Performed By: #### L 100.0100, L500.4100, L501.9520, L500.4050 #### [facility] [address] [place], [address] Hematocrit (Bld) [Volume fraction] 41.7 % Normal 37-47 [facility] Comment on above: Performed By: #### L 100.0100, L500.4100, L501.9520, L500.4050 #### [facility] [address] [place], [address] Hemoglobin (Bld) [Mass/Vol] 14.1 g/dL Normal 12.0-15.0 [facility] Comment on above: Performed By: #### L 100.0100, L500.4100, L501.9520, L500.4050 #### [facility] [address] [place], [address] IG% 0.400 Normal 0.0-0.9 [facility] Comment on above: Result Comment: IG% - Immature Granulocytes (promyelocytes, myelocytes and metamyelocytes) > 1% indicates that a LEFT SHIFT is Present. Performed By: #### L 100.0100, L500.4100, L501.9520, L500.4050 #### [facility] [address] [place], [address] Lymphocytes/100 WBC (Bld) 33.6 % Normal 19-41 [facility] Comment on above: Performed By: #### L 100.0100, L500.4100, L501.9520, L500.4050 #### [facility] [address] [place], [address] MCH (RBC) [Entitic mass] 30.4 pg Normal 27.0-32.0 [facility] Comment on above: Performed By: #### L 100.0100, L500.4100, L501.9520, L500.4050 #### [facility] [address] [place], [address] MCHC (RBC) [Mass/Vol] 33.8 g/dL Normal 32-36 [facility] Comment on above: Performed By: #### L 100.0100, L500.4100, L501.9520, L500.4050 #### [facility] [address] [place], [address] MCV (RBC) [Entitic vol] 89.9 fL Normal 81-99 [facility] Comment on above: Performed By: #### L 100.0100, L500.4100, L501.9520, L500.4050 #### [facility] [address] [place], [address] Monocytes/100 WBC (Bld) 8.9 % Normal 0-10 [facility] Comment on above: Performed By: #### L 100.0100, L500.4100, L501.9520, L500.4050 #### [facility] [address] [place], [address] Neutrophils/100 WBC (Bld) 50.8 % Normal 47-70 [facility] Comment on above: Performed By: #### L 100.0100, L500.4100, L501.9520, L500.4050 #### [facility] [address] [place], [address] Nucleated RBC (Bld) [#/Vol] 0 10*3/uL Normal 0-5 [facility] Comment on above: Performed By: #### L 100.0100, L500.4100, L501.9520, L500.4050 #### [facility] [address] [place], [address] Platelet mean volume (Bld) [Entitic vol] 10.7 fL Normal 6.2-12.0 [facility] Comment on above: Performed By: #### L 100.0100, L500.4100, L501.9520, L500.4050 #### [facility] [address] [place], [address] Platelets (Bld) [#/Vol] 483 10*3/uL High 150-450 [facility] Comment on above: Performed By: #### L 100.0100, L500.4100, L501.9520, L500.4050 #### [facility] [address] [place], [address] RBC (Bld) [#/Vol] 4.64 10*6/uL Normal 4.2-5.4 [facility] Comment on above: Performed By: #### L 100.0100, L500.4100, L501.9520, L500.4050 #### [facility] [address] [place], [address] RDW SD 45.0 fl High 35.1-43.9 [facility] Comment on above: Performed By: #### L 100.0100, L500.4100, L501.9520, L500.4050 #### [facility] [address] [place], [address] WBC (Bld) [#/Vol] 10.1 10*3/uL Normal 4.4-11.0 [facility] Comment on above: Performed By: #### L 100.0100, L500.4100, L501.9520, L500.4050 #### [facility] [address] [place], [address] Calculated very low density lipoprotein (VLDL) cholesterol measurementOrdered By: Michelle Vanegas on 09-26-2024 Calculated very low density lipoprotein (VLDL) cholesterol measurement 35 mg/dL -40 [facility] VLDL Cholesterol 35 mg/dL - [facility] Carbon dioxide, total [Moles /volume] in Central venous bloodOrdered By: Michelle Vanegas on 09-26-2024 CO2 [Moles/Vol] 24.6 mmol/L 21.0-32.0 [facility] Chloride assayOrdered By: Anthony Vanegas on 09-26-2024 Chloride [Moles/Vol] 105 mmol/L 98-108 [facility] Comprehensive Metabolic Prof ilon 09-26-2024 Albumin [Mass/Vol] 4.2 g/dL Normal 3.4-4.8 [facility] Comment on above: Performed By: #### L 100.0100, L500.4100, L501.9520, L500.4050 #### [facility] [address] [place], [address] Albumin/Globulin [Mass ratio] 1.4 {ratio} Normal 0.9-2.4 [facility] Comment on above: Performed By: #### L 100.0100, L500.4100, L501.9520, L500.4050 #### [facility] [address] [place], [address] ALK PHOS 65 U/L Normal 35-104 [facility] Comment on above: Performed By: #### L 100.0100, L500.4100, L501.9520, L500.4050 #### [facility] [address] [place], [address] ALT [Catalytic activity/Vol] 28 U/L Normal <=34 [facility] Comment on above: Performed By: #### L 100.0100, L500.4100, L501.9520, L500.4050 #### [facility] [address] [place], [address] AST [Catalytic activity/Vol] 42 U/L High <=31 [facility] Comment on above: Performed By: #### L 100.0100, L500.4100, L501.9520, L500.4050 #### [facility] [address] [place], [address] Bilirubin [Mass/Vol] 0.23 mg/dL Normal 0.00-1.30 [facility] Comment on above: Performed By: #### L 100.0100, L500.4100, L501.9520, L500.4050 #### [facility] [address] [place], [address] BUN/CRE 23.9 RATIO High 10-20 [facility] Comment on above: Performed By: #### L 100.0100, L500.4100, L501.9520, L500.4050 #### [facility] [address] [place], [address] Calcium [Mass/Vol] 9.7 mg/dL Normal 7.6-11.0 [facility] Comment on above: Performed By: #### L 100.0100, L500.4100, L501.9520, L500.4050 #### [facility] [address] [place], [address] Chloride [Moles/Vol] 105 mmol/L Normal 98-108 [facility] Comment on above: Performed By: #### L 100.0100, L500.4100, L501.9520, L500.4050 #### [facility] [address] [place], [address] CO2 [Moles/Vol] 24.6 mmol/L Normal 21.0-32.0 [facility] Comment on above: Performed By: #### L 100.0100, L500.4100, L501.9520, L500.4050 #### [facility] [address] [place], [address] Creatinine [Mass/Vol] 0.81 mg/dL Normal 0.70-1.20 [facility] Comment on above: Performed By: #### L 100.0100, L500.4100, L501.9520, L500.4050 #### [facility] [address] [place], [address] GAP 10 Normal 5-15 [facility] Comment on above: Performed By: #### L 100.0100, L500.4100, L501.9520, L500.4050 #### [facility] [address] [place], [address] GFR/1.73 sq M.predicted among non-blacks MDRD (S/P/Bld) [Vol rate/Area] 83 mL/min/{1.73_m2} Normal >60 [facility] Comment on above: Result Comment: mL/m in/1.73m2 CKD-EPI Creatinine Equation (2020) Performed By: #### L 100.0100, L500.4100, L501.9520, L500.4050 #### [facility] [address] [place], [address] Globulin (S) [Mass/Vol] 3.0 g/dL Normal 2.2-4.2 [facility] Comment on above: Performed By: #### L 100.0100, L500.4100, L501.9520, L500.4050 #### [facility] [address] [place], [address] Glucose [Mass/Vol] 86 mg/dL Normal 70-99 [facility] Comment on above: Performed By: #### L 100.0100, L500.4100, L501.9520, L500.4050 #### [facility] [address] [place], [address] Potassium [Moles/Vol] 4.5 mmol/L Normal 3.3-5.1 [facility] Comment on above: Performed By: #### L 100.0100, L500.4100, L501.9520, L500.4050 #### [facility] [address] [place], [address] Sodium [Moles/Vol] 140 mmol/L Normal 133-145 [facility] Comment on above: Performed By: #### L 100.0100, L500.4100, L501.9520, L500.4050 #### [facility] [address] [place], [address] T PROT 7.2 g/dL Normal 5.9-8.4 [facility] Comment on above: Performed By: #### L 100.0100, L500.4100, L501.9520, L500.4050 #### [facility] [address] [place], [address] Urea nitrogen [Mass/Vol] 19 mg/dL Normal 4-19 [facility] Comment on above: Performed By: #### L 100.0100, L500.4100, L501.9520, L500.4050 #### [facility] [address] [place], [address] Eosinophil percentageOrdered By: Michelle Vanegas on 09-26-2024 Eosinophils/100 WBC (Bld) 5.1 % High 0-5 [facility] Erythrocyte distribution wid th ratioOrdered By: Michelle Vanegas on 09-26-2024 Erythrocyte distribution width (RBC) [Ratio] 13.7 % 11.6-14.6 [facility] Erythrocyte distribution wid th standard deviationOrdered By: Tylerhillsboroughbrent Vanegas on 09-26-2024 Erythrocyte distribution width (RBC) [Entitic vol] 45.0 fL High 35.1-43.9 [facility] Erythrocyte distribution width (RBC) [Ratio] 45.0 fl High 35.1-43.9 [facility] GFR/1.73 sq M.predicted sheldon g non-blacks MDRD (S/P/Bld) [Vol rate/Area]Ordered By: Michelle Vanegas on 09-26-2024 Estimated GFR (MDRD) Non-Af Amer 83 >60 [facility] Comment on above: mL/min/1.73m2 CKD-EP I Creatinine Equation (2020) Glomerular filtration rate ( GFR) estimation/1.73 sq m using serum, plasma, or whole bOrdered By: Michelle Vanegas on 09-26-2024 GFR/1.73 sq M.predicted among non-blacks MDRD (S/P/Bld) [Vol rate/Area] 83 mL/min/{1.73_m2} >60 [facility] Comment on above: mL/min/1.73m2 CKD-EP I Creatinine Equation (2020) Hematocrit Auto (Bld) [Volum e fraction]Ordered By: Michelle Vanegas on 09-26-2024 Hematocrit (Bld) [Volume fraction] 41.7 % 37-47 [facility] Hemoglobin measurementOrdere d By: Michelle Vanegas on 09-26-2024 Hemoglobin (Bld) [Mass/Vol] 14.1 g/dL 12.0-15.0 [facility] Immature granulocytes/100 WB C Auto (Bld)Ordered By: Michelle Vanegas on 09-26-2024 Immature granulocytes/100 WBC (Bld) 0.400 % 0.0-0.9 [facility] Comment on above: IG% - Immature Granu locytes (promyelocytes, myelocytes and metamyelocytes) > 1% indicates that a LEFT SHIFT is Present. Internal Medicine Office Vis itotricia 09-26-2024 Internal Medicine Office Visit [facility] [address] [place] [address] OFFICE VISIT Date of Service: 09/26/24 MR#: [id number] Acct: [id number] Name: VANIA MALONE Rep #: [id number] : 1960 Provider: Dr. 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 Accompanied by: Self Is patient in pain?: No Allergies No Known Allergies Allergy (Verified 09/26/24 12:47) Medications ???Medication ???Instructions ???Recorded ???Confirmed ???Type omeprazole 20 mg capsule,delayed 20 mg PO DAILY 09/02/21 09/26/24 H istory release calcium 600 mg (as 1 tab PO QDAY 05/23/24 09/26/24 Hi story carbonate)-vitamin D3 20 mcg (800 unit) tablet levothyroxine 125 mcg tablet See Rx Instructions .Route 4 09/26/24 Rx .COMPLEX #90 tabs metoprolol succinate 50 mg 50 mg PO QHS #90 tabs 05/23/24 Rx tablet,extended release 24 hr albuterol 90 mcg-budesonide 80 2 inh inhalation ONCE #5.9 grams 0 09/05/24 09/26/24 Rx mcg/actuation HFA aerosol inhaler (Airsupra) codeine 10 mg-guaifenesin 100 mg/5 10 ml PO Q6H PRN cough #120 mL 0 09/05/24 09/26/24 Rx mL oral liquid (Guaifenesin AC) hydrochlorothiazide 25 mg tablet See Rx Instructions .Route 5 09/26/24 History .COMPLEX PRN nyquil HBP PO QHS PRN 09/05/24 09/26/24 Histo ry Have you fallen in the past year?: No Nurse's Note: follow up COUNT INCLUDES THE [facility] Medical History Flu vaccine refused Osteopenia Post-menopausal Encounter for vitamin deficiency screening Dermatitis Wears glasses Thyroid disease Arthritis History of hiatal hernia GERD (gastroesophageal reflux disease) Non-smoker History of stress test ( 2004) Hypertension History of injury of tendon Obesity (BMI 30-39.9) Flu vaccine need Health care maintenance Left axillary swelling Colon cancer screening COVID Neuralgia Sinusitis Preventative health care Hiatal hernia History of pneumonia Hernia Surgical History History of cardiac catheterization ( 2004) History of tonsillectomy History of colonoscopy History of pancreatic surgery ( 2004) History of splenectomy History of partial splenectomy Family History Aunt Colon cancer Other Cancer Diabetes Heart disease Hypertension Social History Smoking Status: Never smoker alcohol intake: never substance use type: does not use what type of physical activity do you participate in: none HPI HPI Chief Complaint: Follow-up chronic conditions Details: VANIA MALONE, is a 64 F who presents to the office today for follow-up of her chronic conditions. No acute concerns at this time. History of hypertension, blood pressure today at 138/84. Has not checked it at home recently because she has had good readings at recent visits. She states that she is taking her medication consistently and continues to exercise/stay active. No chest pain, palpitation or shortness of breath. Seen recently for an acute visit due to upper respiratory infection. For the most part doing better. Still has some ear fullness and vertigo. History of hypothyroidism on levothyroxine, last TSH within range. No heat or cold intolerance. No change in bowel movements reported. ROS Const Constitutional: No body ache, excessive sweating, fatigue, fever(s), frequent falls, headache(s), snoring, weakness, weight change, sleep problems or change in appetite Eyes Eyes: No blurry vision, change in vision, eye pain or Light sensitivity ENT ENT: No abnormal hearing, ear or mastoid pain, tinnitus, nasal congestion, headache(s), neck pain or sore throat Resp Respiratory: No cough, shortness of breath, snoring or wheezing Cardio Cardiology: No chest pain at rest, chest pain with exertion, excessive sweating, shortness of breath, dyspnea on exertion, lightheadedness, orthopnea or palpitations Gastro GI: No abdominal pain, change in bowel habits, constipation, cramping, diarrhea, nausea/dyspepsia or vomiting Genitourinary-Female: No burning urination, painful urination, urinary incontinence, urinary frequency, blood in urine, abnormal periods or pelvic pain Musc (more content not included)... Normal [facility] LDL calc ser/plasOrdered By: Michelle Vanegas on 09-26-2024 Cholesterol in LDL [Mass/Vol] 116 mg/dL [facility] Comment on above: Xiihdpdqqo=136-211 m g/dL & Higher Nghi=600 mg/dL or greater LDL Cholesterol, Calculated 116 mg/dL [facility] Comment on above: Risibqbasn=496-372 m g/dL & Higher Uxox=418 mg/dL or greater Laboratory - Chemistry and C hemistry - challengeOrdered By: Michelle Vanegas on 09-26-2024 AST [Catalytic activity/Vol] 42 U/L High <32 [facility] Lipid Profileon 09-26-2024 CHOL:HDL 3.84 Normal [facility] Comment on above: Performed By: #### L 100.0100, L500.4100, L501.9520, L500.4050 #### [facility] [address] [place], [address] Cholesterol [Mass/Vol] 204 mg/dL High <=200 [facility] Comment on above: Result Comment: Chol esterol level, Desirable <200 mg/dL Borderline high cholesterol 200-239 mg/dL High cholesterol >=240 mg/dL Recommendations of the NCEP Adult Treatment Panel for the following risk-cutoff thresholds for the [place] population. Performed By: #### L 100.0100, L500.4100, L501.9520, L500.4050 #### [facility] [address] [place], [address] Cholesterol in HDL [Mass/Vol] 53 mg/dL Normal [facility] Comment on above: Result Comment: Melissa onal Cholesterol Education Program (NCEP) guidelines: <40 mg/dL: Low HDL-cholesterol (major risk factor for CHD) >= 60 mg/dL: High HDL-cholesterol (negative risk factor for CHD) HDL-cholesterol is affected by a number of factors, e.g. smoking, exercise, hormones, sex and age. Performed By: #### L 100.0100, L500.4100, L501.9520, L500.4050 #### [facility] [address] [place], [address] Cholesterol in LDL [Mass/Vol] 116 mg/dL Normal [facility] Comment on above: Result Comment: Bord fowiem=840-650 mg/dL Higher Ojuf=334 mg/dL or greater Performed By: #### L 100.0100, L500.4100, L501.9520, L500.4050 #### [facility] [address] [place], [address] Cholesterol in VLDL [Mass/Vol] 35 mg/dL Normal 5-40 [facility] Comment on above: Performed By: #### L 100.0100, L500.4100, L501.9520, L500.4050 #### [facility] [address] [place], [address] Triglyceride [Mass/Vol] 173 mg/dL Normal [facility] Comment on above: Result Comment: The drugs N-Acetylcysteine and Metamizole may falsely depress this assay. Normal range: <150 mg/dL Borderline High: 150-199 mg/dL High: 200-499 mg/dL Very High: >500 mg/dL Performed By: #### L 100.0100, L500.4100, L501.9520, L500.4050 #### [facility] [address] [place], [address] Lymphocytes Auto (Unsp spec) [#/Vol]Ordered By: Michelle Vanegas on 09-26-2024 Lymphocytes (Bld) [#/Vol] 3.38 10*3/uL 0.83-4.51 [facility] Lymphocytes/100 WBC Auto (Un sp spec)Ordered By: Michelle Vanegas on 09-26-2024 Lymphocytes/100 WBC (Bld) 33.6 % 19-41 [facility] MCV (mean corpuscular volume ) determinationOrdered By: Michelle Vanegas on 09-26-2024 MCV (RBC) [Entitic vol] 89.9 fL 81-99 [facility] Mean corpuscular hemoglobin (MCH) determinationOrdered By: Michelle Vanegas on 09-26-2024 MCH (RBC) [Entitic mass] 30.4 pg 27.0-32.0 [facility] Mean corpuscular hemoglobin concentration (MCHC) determinationOrdered By: Michelle Vanegas on 09-26-2024 MCHC (RBC) [Mass/Vol] 33.8 g/dL 32-36 [facility] Mean platelet volume determi nationOrdered By: Michelle Vanegas on 09-26-2024 Platelet mean volume (Bld) [Entitic vol] 10.7 fL 6.2-12.0 [facility] Monocyte percentageOrdered B y: Michelle Vanegas on 09-26-2024 Monocytes/100 WBC (Bld) 8.9 % 0-10 [facility] Neutrophil percentageOrdered By: Michelle Vanegas on 09-26-2024 Neutrophils/100 WBC (Bld) 50.8 % 47-70 [facility] Nucleated red blood cell per centageOrdered By: Michelle Vanegas on 09-26-2024 Nucleated RBC/100 WBC (Bld) [Ratio] 0 % 0-5 [facility] Platelet countOrdered By: Anthony Vanegas on 09-26-2024 Platelets (Bld) [#/Vol] 483 10*3/uL High 150-450 [facility] Potassium (Unsp spec) [Mass/ Vol]Ordered By: Michelle Vanegas on 09-26-2024 Potassium [Moles/Vol] 4.5 mmol/L 3.3-5.1 [facility] Potassium measurement (mass/ volume)Ordered By: Michelle Vanegas on 09-26-2024 Potassium (Unsp spec) [Mass/Vol] 4.5 mmol/L 3.3-5.1 [facility] RBC Auto (Bld) [#/Vol]Ordere d By: Michelle Vanegas on 09-26-2024 RBC (Bld) [#/Vol] 4.64 10*6/uL 4.2-5.4 [facility] Screening total cholesterol/ high density lipoprotein (HDL) cholesterol ratioOrdered By: Michelle Vanegas on 09-26-2024 Cholesterol.total/Susan sterol in HDL [Mass ratio] 3.84 {ratio} [facility] Serum creatinine measurement (mass/volume)Ordered By: Michelle Vanegas on 09-26-2024 Creatinine [Mass/Vol] 0.81 mg/dL 0.70-1.20 [facility] Serum globulin measurementOr dered By: Michelle Vanegas on 09-26-2024 Globulin (S) [Mass/Vol] 3.0 g/dL 2.2-4.2 [facility] Serum glucose measurement (m ass/volume)Ordered By: Michelle Vanegas on 09-26-2024 Glucose [Mass/Vol] 86 mg/dL 70-99 [facility] Serum or plasma alanine rowell otransferase (ALT) measurementOrdered By: Michelle Vanegas on 09-26-2024 ALT [Catalytic activity/Vol] 28 U/L <35 [facility] Serum or plasma albumin tatum urement (mass/volume)Ordered By: Michelle Vanegas on 09-26-2024 Albumin [Mass/Vol] 4.2 g/dL 3.4-4.8 [facility] Serum or plasma albumin/glob ulin mass ratioOrdered By: Michelle Vanegas on 09-26-2024 Albumin/Globulin [Mass ratio] 1.4 {ratio} 0.9-2.4 [facility] Serum or plasma alkaline susanna sphatase measurementOrdered By: Michelle Vanegas on 09-26-2024 ALP [Catalytic activity/Vol] 65 U/L 35-104 [facility] Serum or plasma calcium tatum urement (mass/volume)Ordered By: Michelle Vanegas on 09-26-2024 Calcium [Mass/Vol] 9.7 mg/dL 7.6-11.0 [facility] Serum or plasma cholesterol in HDL measurement (mass/volume)Ordered By: Michelle Vanegas on 09-26-2024 Cholesterol in HDL [Mass/Vol] 53 mg/dL >40 [facility] Comment on above: National Cholesterol Education Program (NCEP) guidelines:<40 mg/dL: Low HDL-cholesterol (major risk factor for CHD)>= 60 mg/dL: High HDL-cholesterol (negative risk factor for CHD)HDL-cholesterol is affected by a number of factors, e.g. smoking, exercise, hormones, sex and age. Serum or plasma cholesterol measurement (mass/volume)Ordered By: Michelle Vanegas on 09-26-2024 Cholesterol [Mass/Vol] 204 mg/dL High <201 [facility] Comment on above: Cholesterol level, D esirable <200 mg/dLBorderline high cholesterol 200-239 mg/dLHigh cholesterol >=240 mg/dLRecommendations of the NCEP Adult Treatment Panel for the following risk-cutoff thresholds for the [place] population. Serum or plasma urea nitroge n measurement (mass/volume)Ordered By: Michelle Vanegas on 09-26-2024 Urea nitrogen [Mass/Vol] 19 mg/dL 4-19 [facility] Sodium levelOrdered By: Tyler Vanegas on 09-26-2024 Sodium [Moles/Vol] 140 mmol/L 133-145 [facility] TSH DL <= 0.005 mIU/L QnOrde red By: Michelle Vanegas on 09-26-2024 Thyroid Stimulating Hormone (TSH) 0.895 uIU/mL 0.300-4.200 [facility] TSH Qn 0.895 uIU/mL 0.300-4.200 [facility] Thyroid Stim Hormone (TSH)on 09-26-2024 TSH 0.895 uIU/mL Normal 0.300-4.200 [facility] Comment on above: Performed By: #### L 100.0100, L500.4100, L501.9520, L500.4050 #### [facility] [address] [place], [place], [id number] Total proteinOrdered By: Jean Vanegas on 09-26-2024 Protein [Mass/Vol] 7.2 g/dL 5.9-8.4 [facility] Triglycerides measurementOrd ered By: Michelle Vanegas on 09-26-2024 Triglyceride [Mass/Vol] 173 mg/dL <199 [facility] Comment on above: The drugs N-Acetylcy steine and Metamizole may falsely depress this assay. Normal range: <150 mg/dLBorderline High: 150-199 mg/dLHigh: 200-499 mg/dLVery High: >500 mg/dL White blood cell (WBC) count Ordered By: Michelle Vanegas on 09-26-2024 WBC (Bld) [#/Vol] 10.1 10*3/uL 4.4-11.0 [facility] Vis tosha 09-05-2024 Internal Medicine Office Visit [facility] [address] [place] [address] [place] [address] OFFICE VISIT Date of Service: 09/05/24 MR#: [id number] Acct: [id number] Name: VANIA MALONE Rep #: [id number] : 1960 Provider: ERIC Saab Age/Sex: 64/F Location: [facility] [place] Status: Signed Intake Vital Signs 08/09/24 13:02 09/05/24 11:09 Height 5 ft 3 in 5 ft 3 in Weight: 207 lb 2 oz 210 lb BMI 36.6 37.2 BP 162/90 H 144/94 H Blood Pressure Location Lt brachial Lt brachial Position Sitting Sitting Respiration 20 H 18 Pulse 103 H 78 Pulse Source Monitor Monitor Temp 97.5 F L 98.3 F Temp Source Temporal Temporal Pulse Oximetry (%) 94 97 Oxygen Delivery Method room air room air Comment pt denies CP or shortness of breath. states she takes HBP nyquil at night Intake Visit Reasons: ACUTE-COUGH PERSISTS Chief Complaint: ACUTE - COUGH PERSISTS Is patient in pain?: Yes (5 right ear, along with vertigo ) Allergies No Known Allergies Allergy (Verified 09/05/24 11:07) Medications ???Medication ???Instructions ???Recorded ???Confirmed ???Type omeprazole 20 mg capsule,delayed 20 mg PO DAILY 09/02/21 09/05/24 H istory release calcium 600 mg (as 1 tab PO QDAY 05/23/24 09/05/24 Hi story carbonate)-vitamin D3 20 mcg (800 unit) tablet levothyroxine 125 mcg tablet See Rx Instructions .Route 4 09/05/24 Rx .COMPLEX #90 tabs metoprolol succinate 50 mg 50 mg PO QHS #90 tabs 05/23/2411/25 Rx tablet,extended release 24 hr albuterol 90 mcg-budesonide 80 2 inh inhalation ONCE #5.9 grams 0 09/05/24 09/05/24 Rx mcg/actuation HFA aerosol inhaler (Airsupra) codeine 10 mg-guaifenesin 100 mg/5 10 ml PO Q6H PRN cough #120 mL 0 09/05/24 09/05/24 Rx mL oral liquid (Guaifenesin AC) hydrochlorothiazide 25 mg tablet See Rx Instructions .Route 5 History .COMPLEX PRN nyquil HBP PO QHS PRN 09/05/24 History Have you fallen in the past year?: No Nurse's Note: pt reports she has had a cough and right ear ache accompanied by vertigo for the past month. states that she is concerned that since she does not have a spleen she is having difficulty fighting this infection. pt reports being tested for covid and flu at urgent care (negative test results) pt denies chest pain shortness of breath PFSH Medical History Flu vaccine refused Osteopenia Post-menopausal Encounter for vitamin deficiency screening Dermatitis Wears glasses Thyroid disease Arthritis History of hiatal hernia GERD (gastroesophageal reflux disease) Non-smoker History of stress test ( 2004) Hypertension History of injury of tendon Obesity (BMI 30-39.9) Flu vaccine need Health care maintenance Left axillary swelling Colon cancer screening COVID Neuralgia Sinusitis Preventative health care Hiatal hernia History of pneumonia Hernia Surgical History History of cardiac catheterization ( 2004) History of tonsillectomy History of colonoscopy History of pancreatic surgery ( 2004) History of splenectomy History of partial splenectomy Family History Aunt Colon cancer Other Cancer Diabetes Heart disease Hypertension Social History Smoking Status: Never smoker alcohol intake: never substance use type: does not use what type of physical activity do you participate in: none HPI HPI Chief Complaint: ACUTE - COUGH PERSISTS Details: VANIA MALONE, is a 64 F who presents to the office today for f/u on recent URI symptoms. Patient states that the antibiotic definitely helped her sinus symptoms in that she has no sinus pains / congestion and no extra mucus. She states though she has continued with a dry cough. She states that the cough is pretty much all day long and is non-productive. She states that occasionally maybe she gets a little up. She states that the earache has also persisted. This is intermittent and sometimes it can be achy and other times this can be a sharp pain. She is not currently having any fevers She denies shortness of breath She has not noted any wheezing She denies any fatigue / lethargy ROS Const Constitutional: No body ache, chills, excessive sweating, fatigue, fever(s), frequent falls, headache(s), snoring, weight change, sleep problems, abnormal sleep pattern or change in appetite Eyes Eyes: No blurry vision, change in vision, eye pain or Light sensitivity ENT ENT: No abnormal hearing, ear or mastoid pain, tinnitus, nasal congestion, headache(s), neck pain or sore throat Resp Respiratory: Positive for cough; No shortness of breath, snoring or wheezing Cardi (more content not included)... Normal [facility] Internal Medicine Office Vis tosha 08-09-2024 Internal Medicine Office Visit [facility] [address] [place] [address] [place] [address] OFFICE VISIT Date of Service: 08/09/24 MR#: [id number] Acct: [id number] Name: VANIA MALONE Rep #: [id number] : 1960 Provider: ERIC Saab Age/Sex: 64/F Location: [facility] [place] [facility] Status: Signed Intake Vital Signs 05/23/24 13:12 08/09/24 13:02 Height 5 ft 3 in 5 ft 3 in Weight: 213 lb 207 lb 2 oz BMI 37.7 36.6 BP 126/80 H 162/90 H Blood Pressure Location Lt brachial Lt brachial Position Sitting Sitting Respiration 17 20 H Pulse 91 103 H Pulse Source Monitor Monitor Temp 97.3 F L 97.5 F L Temp Source Temporal Temporal Pulse Oximetry (%) 98 94 Oxygen Delivery Method room air room air Intake Visit Reasons: ACUTE FLU SYMPTOMS, EAR PAIN Chief Complaint: ear pain green mucous 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 pressure 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 Accompanied by: Self Is patient in pain?: No Allergies No Known Allergies Allergy (Verified 08/09/24 13:00) Medications ???Medication ???Instructions ???Recorded ???Confirmed ???Type omeprazole 20 mg capsule,delayed 20 mg PO DAILY 09/02/21 08/09/24 H istory release calcium 600 mg (as 1 tab PO QDAY 05/23/24 08/09/24 Hi story carbonate)-vitamin D3 20 mcg (800 unit) tablet hydrochlorothiazide 25 mg tablet See Rx Instructions .Route 4 08/09/24 Rx .COMPLEX #90 tabs levothyroxine 125 mcg tablet See Rx Instructions .Route 4 08/09/24 Rx .COMPLEX #90 tabs metoprolol succinate 50 mg 50 mg PO QHS #90 tabs 05/23/2412/26 Rx tablet,extended release 24 hr amoxicillin 875 mg-potassium 1 tab PO Q12H #20 tabs 08/09/24 Rx clavulanate 125 mg tablet benzonatate 200 mg capsule 200 mg PO TID PRN cough #30 caps 0 08/09/24 08/09/24 Rx Have you fallen in the past year?: No Nurse's Note: swollen glands aching fatigue ear pain and pressure sinus congestion and cough discoloration of phlegm PFSH Medical History Flu vaccine refused Osteopenia Post-menopausal Encounter for vitamin deficiency screening Dermatitis Wears glasses Thyroid disease Arthritis History of hiatal hernia GERD (gastroesophageal reflux disease) Non-smoker History of stress test ( 2004) Hypertension History of injury of tendon Obesity (BMI 30-39.9) Flu vaccine need Health care maintenance Left axillary swelling Colon cancer screening COVID Neuralgia Sinusitis Preventative health care Hiatal hernia History of pneumonia Hernia Surgical History History of cardiac catheterization ( 2004) History of tonsillectomy History of colonoscopy History of pancreatic surgery ( 2004) History of splenectomy History of partial splenectomy Family History Aunt Colon cancer Other Cancer Diabetes Heart disease Hypertension Social History Smoking Status: Never smoker alcohol intake: never substance use type: does not use what type of physical activity do you participate in: none HPI HPI Chief Complaint: ear pain green mucous sinus pressure Details: VANIA MALONE, is a 64 F who presents to the office today for upper respiratory symptoms this past Tuesday. She states that she had a sore throat that day with some body aches and fever that day (she did not take her temp). She went to bed that night and states that the fever broke at some point that night. She has not had fevers since then. She states that Tuesday she then started with coughing and nasal symptoms. She states that cough is productive of a thick discolored green mucus that is much worse first thing in the morning. [facility] where COVID and flu tests were performed both of which were negative. She states that nothing has changed since then and so she came in her today. She has been taking some daqyuil / nyquil HBP which only helps her sleep a little at night. ROS Const Constitutional: Positive for headache(s); No body ache, excessive sweating, fatigue, fever(s), frequent falls, snoring, weakness, weight change, sleep problems or change in appetite Eyes Eyes: No blurry vision, change in vision, eye pain or Light sensitivity ENT ENT: Positive for ear or mastoid pain, ear pressure, nasal congestion, sinus pressure, headache(s), neck pain and sore throat; No abnormal hearing or tinnitus Resp Respiratory: Positive for cough, change in phlegm color and pain with cough; No shortness of breath, snoring or wheezing Cardio Cardiology: No chest pain at rest, chest pain with exertion, excessive sweating, shortness of breath, dyspnea on exertion, lightheadedness, orthopnea or palpitations G (more content not included)... Normal [facility] Internal Medicine Office Vis tosha 05-23-2024 Internal Medicine Office Visit [facility] [address] [place], [place] [address] OFFICE VISIT Date of Service: 05/23/24 MR#: [id number] Acct: [id number] Name: VANIA MALONE Rep #: [id number] : 1960 Provider: Dr. Michelle bah MD Age/Sex: 64/F Location: [facility] [facility] Status: Signed Intake Vital Signs 03/02/24 11:24 05/23/24 13:12 Height 5 ft 3 in 5 ft 3 in Weight: 207 lb 2 oz 213 lb BMI 36.6 37.7 BP 126/84 H 126/80 H Blood Pressure Location Lt brachial Lt brachial Position Sitting Sitting Respiration 16 17 Pulse 70 91 Pulse Source Monitor Monitor Temp 97.5 F L 97.3 F L Temp Source Temporal Temporal Pulse Oximetry (%) 98 98 Oxygen Delivery Method room air room air Intake Visit Reasons: 3 M FU Chief Complaint: 3 M FU Is patient in pain?: No Allergies No Known Allergies Allergy (Verified 05/23/24 13:10) Medications ???Medication ???Instructions ???Recorded ???Confirmed ???Type omeprazole 20 mg capsule,delayed 20 mg PO DAILY 09/02/21 05/23/24 History release calcium 600 mg (as 1 tab PO QDAY 05/23/24 05/23/24 History carbonate)-vitamin D3 20 mcg (800 unit) tablet hydrochlorothiazide 25 mg tablet See Rx Instructions .Route 05/23/24 05/23/24 Rx .COMPLEX #90 tabs levothyroxine 125 mcg tablet See Rx Instructions .Route 05/23/24 05/23/24 Rx .COMPLEX #90 tabs metoprolol succinate 50 mg 50 mg PO QHS #90 tabs 05/23/24 05/23/24 Rx tablet,extended release 24 hr PFSH Medical History (Updated 05/23/24 @ 13:[address] Michelle Vanegas MD) Flu vaccine refused Osteopenia Post-menopausal Encounter for vitamin deficiency screening Dermatitis Wears glasses Thyroid disease Arthritis History of hiatal hernia GERD (gastroesophageal reflux disease) Non-smoker History of stress test ( 2004) Hypertension History of injury of tendon Obesity (BMI 30-39.9) Flu vaccine need Health care maintenance Left axillary swelling Colon cancer screening COVID Neuralgia Sinusitis Preventative health care Hiatal hernia History of pneumonia Hernia Surgical History History of cardiac catheterization ( 2004) History of tonsillectomy History of colonoscopy History of pancreatic surgery ( 2004) History of splenectomy History of partial splenectomy Family History Aunt Colon cancer Other Cancer Diabetes Heart disease Hypertension Social History Smoking Status: Never smoker alcohol intake: never substance use type: does not use what type of physical activity do you participate in: none HPI HPI Chief Complaint: 3 M FU Details: VANIA MALONE, is a 64 F who presents to the office today for follow-up of her chronic conditions. No acute concerns at this time. History of hypertension, blood pressure today at 126/80 mmHg. She states that she has been checking her numbers at home and they have been overall stable. Continues to stay active/exercise. No chest pain, palpitation or shortness of breath. Also history of hypothyroidism on levothyroxine. TSH stable at last check. No heat intolerance or unintentional weight changes. Taking medications consistently. Other chronic medical conditions are stable. ROS Const Constitutional: No body ache, chills, excessive sweating, fatigue, fever(s), frequent falls, headache(s), snoring, weight change, sleep problems, abnormal sleep pattern or change in appetite Eyes Eyes: No blurry vision, change in vision, bulging eyes, floaters, visual disturbances, eye pain or Light sensitivity ENT ENT: No abnormal hearing, ear or mastoid pain, tinnitus, balance problems, nosebleed/epistaxis, nasal congestion, headache(s), neck pain or sore throat Resp Respiratory: No cough, excessive phlegm production, pain on inspiration, shortness of breath, snoring or wheezing Cardio Cardiology: No chest pain at rest, chest pain with exertion, excessive sweating, shortness of breath, dyspnea on exertion, lightheadedness, orthopnea or palpitations Gastro GI: No abdominal pain, change in bowel habits, constipation, cramping, diarrhea, nausea/dyspepsia or vomiting Genitourinary-Female: No burning urination, painful urination, urinary incontinence, urinary frequency, suprapubic fullness, side pain, abnormal vaginal bleeding or pelvic pain Musc Musculoskeletal: No abnormal gait, joint pain, back pain, limited range of motion, muscle cramps, neck pain, numbness or tingling Skin Skin: No dry skin, redness, excessive hair growth, yellowing of the eye, lesions, itchy eyes, rash or wounds Neuro Neurology: No abnormal gait, abnormal hearing, behavioral changes, unsteady gait/balance, frequent falls, headac (more content not included)... Normal [facility] IgAon 12-03-2020 IgA [Mass/Vol] 120 mg/dL Normal 70-400 [facility] Comment on above: Performed By: #### I GG, IGM, IGE, IGA #### [place] [phone] #### PNEUMG #### [facility] [address] [place] [address] IgEon 12-03-2020 IgE 12.8 kU/L Normal <114 [facility] Comment on above: Performed By: #### I GG, IGM, IGE, IGA #### [place] [phone] #### PNEUMG #### [address] [address] IgGon 12-03-2020 IgG [Mass/Vol] 1022 mg/dL Normal 700-1600 [facility] Comment on above: Performed By: #### I GG, IGM, IGE, IGA #### [place] [phone] #### PNEUMG #### [facility] [address] [place] [address] IgMon 12-03-2020 IgM [Mass/Vol] 41 mg/dL Normal 40-230 [facility] Comment on above: Performed By: #### I GG, IGM, IGE, IGA #### [place] [phone] #### PNEUMG #### [facility] [address] [place] [address] Pneum IgG Ab 14 Seroon 12-03 Pneu Interpretation SEE NOTE Normal [facility] Comment on above: Result Comment: (NOT E) INTERPRETIVE INFORMATION: Streptococcus pneumoniae Antibodies, IgG A pre- and post-vaccination comparison is required to adequately assess the humoral immune response to Prevnar 7 (P7), Prevnar 13 (P13), and/or Pneumovax 23 (PNX) Streptococcus pneumoniae vaccines. Pre-vaccination samples should be collected prior to vaccine administration. Post-vaccination samples should be obtained at least 4 weeks after immunization. Testing of post-vaccination samples alone will provide only general immune status of the individual to various pneumococcal serotypes. In the case of pure polysaccharide vaccine, indication of immune system competence is further delineated as an adequate response to at least 50 percent of the serotypes in the vaccine challenge for those 2-5 years of age and to at least 70 percent of the serotypes in the vaccine challenge for those 6-65 years of age. Individual immune response may vary based on age, past exposure, immunocompetence, and pneumococcal serotype. Responder Status Antibody Ratio Non-Responder . . . . . . . . . . . . . . Less than 2-fold Weak Responder . . . . . . . . . . . . . 2-fold to 4-fold Good Responder . . . . . . . . . . . . . Greater than 4-fold A response to 50-70 percent or more of the serotypes in the vaccine challenge is considered a normal humoral response(1). Antibody concentration greater than 1.0 - 1.3 ug/mL is generally considered long-term protection(2). References: 1. Allison BRODERICK, Adelina JW, Allen X, Prince BRUCE, Armando HR. Multilaboratory assessment of threshold versus fold-change algorithms for minimizing analytical variability in multiplexed pneumococcal IgG measurements. Clin Vaccine Immunol. 2014;21(7):982-8. 2. Allison BRODERICK, Armando BAKER. Use and Clinical Interpretation of Pneumococcal Antibody Measurements in the Evaluation of Humoral Immune Function. Clin Vaccine Immunol. 2015;22(2):148-152. This test was developed and its performance characteristics determined by [facility]. It has not been cleared or approved by the US Food and Drug Administration. This test was performed in a CLIA certified laboratory and is intended for clinical purposes. Performed By: [facility] [address] [place] [address] Supervisor [employer]: Lola Rapp MD Performed By: #### I GG, IGM, IGE, IGA #### [facility] [address], [place] [address] #### PNEUMG #### [facility] [address] [place] [address] Pneu Serotype 1 14.28 ug/mL Normal [facility] [place] Comment on above: Performed By: #### I GG, IGM, IGE, IGA #### [place] [id number] [place] [phone] #### PNEUMG #### [facility] [address] [place] [phone] Pneu Serotype 12F 0.72 ug/mL Normal [facility] Comment on above: Performed By: #### I GG, IGM, IGE, IGA #### [place] [phone] #### PNEUMG #### [facility] [address] [place] [phone] Pneu Serotype 14 23.11 ug/mL Normal [facility] Comment on above: Performed By: #### I GG, IGM, IGE, IGA #### [place] [phone] #### PNEUMG #### [facility] [address] [place] [phone] Pneu Serotype 18C 4.93 ug/mL Normal [facility] Comment on above: Performed By: #### I GG, IGM, IGE, IGA #### [place] [phone] #### PNEUMG #### [facility] [address] [place] [phone] Pneu Serotype 19F 5.61 ug/mL Normal [facility] Comment on above: Performed By: #### I GG, IGM, IGE, IGA #### [place] [phone] #### PNEUMG #### [facility] [address] [place] [phone] Pneu Serotype 23F 4.82 ug/mL Normal [facility] Comment on above: Performed By: #### I GG, IGM, IGE, IGA #### [place] [phone] #### PNEUMG #### [facility] [address] [place], [place] [address] [phone] Pneu Serotype 3 0.78 ug/mL Normal [facility] Comment on above: Performed By: #### I GG, IGM, IGE, IGA #### [place] [address] #### PNEUMG #### [facility] [address] [place] [phone] Pneu Serotype 4 1.87 ug/mL Normal [facility] Comment on above: Performed By: #### I GG, IGM, IGE, IGA #### [place] [address] #### PNEUMG #### [facility] [address] [place] [phone] Pneu Serotype 5 12.03 ug/mL Normal [facility] [place] Comment on above: Performed By: #### I GG, IGM, IGE, IGA #### [place] [address] #### PNEUMG #### [facility] [address] [place], [place] [phone] [place] [address] Pneu Serotype 6B 1.15 ug/mL Normal [facility] [place] Comment on above: Performed By: #### I GG, IGM, IGE, IGA #### [place] [address] #### PNEUMG #### [facility] [address] [place], [place] [phone] [place] [address] Pneu Serotype 7F 5.71 ug/mL Normal [facility] [place] Comment on above: Performed By: #### I GG, IGM, IGE, IGA #### [place] [id number] [place] [phone] #### PNEUMG #### [facility] [address] [place], [place] [address] [phone] Pneu Serotype 8 2.79 ug/mL Normal [facility] Comment on above: Performed By: #### I GG, IGM, IGE, IGA #### [place] [phone] #### PNEUMG #### [facility] [address] [place] [phone] Pneu Serotype 9N 1.83 ug/mL Normal [facility] [place] Comment on above: Performed By: #### I GG, IGM, IGE, IGA #### [place] [phone] #### PNEUMG #### [facility] [address] [place], [place] [address] [phone] Pneu Serotype 9V 3.60 ug/mL Normal [facility] [place] Comment on above: Performed By: #### I GG, IGM, IGE, IGA #### [place] [phone] #### PNEUMG #### [facility] [address], [place] [address] [phone] MA MAMMOGRAM SCREENING BILAT ERAL W/TOMOon 08-13-2020 MA MAMMOGRAM SCREENING BILATERAL W/ZENAIDA ORIGINAL FROM: [facility] [address] [place] [address] PROCEDURE FOR: VANIA MALONE [address] [place] [address] Home: PID#: [id number] Exam#: [id number] : 1960 Age: 60 TO: JELENA 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 There are scattered fibroglandular elements in both breasts. Current study was also evaluated with a Computer Aided Detection (CAD) system. No significant masses, calcifications, or other findings are seen in either breast. There has been no significant interval change. IMPRESSION: NEGATIVE There is no mammographic evidence of malignancy. A 1 year screening mammogram is recommended.( 2) JESSICA guzman/kilo:08/14/2020 14:39:18 Well Driller Helper(s): ANGÉLICA WORTHINGTON, RT(R)(M)(CT) [facility], [facility] letter sent: Normal BI-RADS 1&2 Mammogram BI-RADS: 1 Negative Normal [facility] ([place]) Vital Signs Date Time Vital Sign Value Performing Clinician Faci lity 01-30-2025 09:13-0400 Body height 160.[address] Michelle Vanegas MD Work Phone: [facility] 01-30-2025 09:13-0400 Body mass index (BMI) [Ratio] 36.1 kg/m2 Dr. Michelle Vanegas MD Work Phone: [facility] 01-30-2025 09:13-0400 Body temperature 97.3 [degF] Dr. Michelle Vanegas MD Work Phone: [facility] 01-30-2025 09:13-0400 Body weight 92.[address] Michelle Vanegas MD Work Phone: [facility] 01-30-2025 09:13-0400 Diastolic blood pressure 94 mm[Hg] Dr. Michelle Vanegas MD Work Phone: [facility] 01-30-2025 09:13-0400 Heart rate 64 /min Dr. Michelle Vanegas MD Work Phone: [facility] 01-30-2025 09:13-0400 Respiratory rate 16 /min Dr. Michelle Vanegas MD Work Phone: [facility] 01-30-2025 09:13-0400 SaO2% (BldA) [Mass fraction] 97 % Dr. Michelle Vanegas MD Work Phone: [facility] 01-30-2025 09:13-0400 Systolic blood pressure 142 mm[Hg] Dr. Michelle Vanegas MD Work Phone: [facility] 01-16-2025 16:00-0400 Body height 160.[address] Michelle Vanegas MD Work Phone: [facility] 01-16-2025 16:00-0400 Body mass index (BMI) [Ratio] 36.8 kg/m2 Dr. Michelle Vaneags MD Work Phone: [facility] 01-16-2025 16:00-0400 Body temperature 96.6 [degF] Dr. Michelle Vanegas MD Work Phone: [facility] 01-16-2025 16:00-0400 Body weight 94.[address] Michelle Vanegas MD Work Phone: [facility] 01-16-2025 16:00-0400 Diastolic blood pressure 78 mm[Hg] Dr. Michelle Vanegas MD Work Phone: [facility] 01-16-2025 16:00-0400 Heart rate 103 /min Dr. Michelle Vanegas MD Work Phone: [facility] 01-16-2025 16:00-0400 Respiratory rate 16 /min Dr. Michelle Vanegas MD Work Phone: [facility] 01-16-2025 16:00-0400 SaO2% (BldA) [Mass fraction] 94 % Dr. Michelle Vanegas MD Work Phone: [facility] 01-16-2025 16:00-0400 Systolic blood pressure 134 mm[Hg] Dr. Michelle Vanegas MD Work Phone: [facility] 09-26-2024 12:50-0400 Body height 160.[address] Michelle Vanegas MD Work Phone: [facility] 09-26-2024 12:50-0400 Body mass index (BMI) [Ratio] 37 kg/m2 Dr. Michelle Vanegas MD Work Phone: [facility] 09-26-2024 12:50-0400 Body temperature 97.2 [degF] Dr. Michelle Vanegas MD Work Phone: [facility] 09-26-2024 12:50-0400 Body weight 94.[address] Michelle Vanegas MD Work Phone: [facility] 09-26-2024 12:50-0400 Diastolic blood pressure 84 mm[Hg] Dr. Michelle Vanegas MD Work Phone: [facility] 09-26-2024 12:50-0400 Heart rate 76 /min Dr. Michelle Vanegas MD Work Phone: [facility] 09-26-2024 12:50-0400 Respiratory rate 16 /min Dr. Michelle Vanegas MD Work Phone: [facility] 09-26-2024 12:50-0400 SaO2% (BldA) [Mass fraction] 98 % Dr. Michelle Vanegas MD Work Phone: [facility] 09-26-2024 12:50-0400 Systolic blood pressure 138 mm[Hg] Dr. Michelle Vanegas MD Work Phone: [facility] 09-05-2024 11:09-0500 Body mass index (BMI) [Ratio] 37.2 kg/m2 Dr. Michelle Vanegas MD Work Phone: [facility] 09-05-2024 11:09-0500 Body temperature 98.3 [degF] Dr. Michelle Vanegas MD Work Phone: [facility] 09-05-2024 11:09-0500 Body weight 95.[address] Michelle Vanegas MD Work Phone: [facility] 09-05-2024 11:09-0500 Diastolic blood pressure 94 mm[Hg] Dr. Michelle Vanegas MD Work Phone: [facility] 09-05-2024 11:09-0500 Heart rate 78 /min Dr. Michelle Vanegas MD Work Phone: [facility] 09-05-2024 11:09-0500 Respiratory rate 18 /min Dr. Michelle Vanegas MD Work Phone: [facility] 09-05-2024 11:09-0500 SaO2% (BldA) [Mass fraction] 97 % Dr. Michelle Vanegas MD Work Phone: [facility] 09-05-2024 11:09-0500 Systolic blood pressure 144 mm[Hg] Dr. Michelle Vanegas MD Work Phone: [facility] 08-09-2024 13:02-0500 Body mass index (BMI) [Ratio] 36.6 kg/m2 Dr. Michelle Vanegas MD Work Phone: [facility] 08-09-2024 13:02-0500 Body temperature 97.5 [degF] Dr. Michelle Vanegas MD Work Phone: [facility] 08-09-2024 13:02-0500 Body weight 93.[address] Michelle Vanegas MD Work Phone: [facility] 08-09-2024 13:02-0500 Diastolic blood pressure 90 mm[Hg] Dr. Michelle Vanegas MD Work Phone: [facility] 08-09-2024 13:02-0500 Heart rate 103 /min Dr. Michelle Vanegas MD Work Phone: [facility] 08-09-2024 13:02-0500 Respiratory rate 20 /min Dr. Michelle Vanegas MD Work Phone: [facility] 08-09-2024 13:02-0500 SaO2% (BldA) [Mass fraction] 94 % Dr. Michelle Vanegas MD Work Phone: [facility] 08-09-2024 13:02-0500 Systolic blood pressure 162 mm[Hg] Dr. Michelle Vanegas MD Work Phone: [facility] Encounters Encounter Date Encounter Type Care Provider Facility Start: 05-23-2025 ambulatory Michelle Vanegas Facili ty:[facility] Start: 04-25-2025 End: 04-25-2025 ambulatory Michelle Vanegas Facility:[facility] Start: 02-25-2025 End: 02-25-2025 Telephone encounter Jelena Castelan NP Work Phone: [facility] Comment on above: Returning Patient's Call (Rtn pt call LVM ) Start: 02-07-2025 End: 02-07-2025 ambulatory ELGIN GARRETT MD Facility:[facility] Start: 02-07-2025 End: 02-07-2025 Patient encounter procedure ELGIN GARRETT MD [facility] Start: 02-05-2025 End: 02-05-[address] Michelle Vanegas MD Work Phone: -[facility] Start: 02-05-2025 End: 02-05-[address] Michelle Vanegas MD -[facility] Work Phone: Start: 02-05-2025 End: 02-05-2025 ambulatory Michelle Vanegas Facility:[facility] Start: 01-30-2025 End: 01-30-[address] Michelle Vanegas MD -[facility] Work Phone: Start: 01-30-2025 End: 01-30-[address] Michelle Vanegas MD Work Phone: -[facility] Start: 01-30-2025 End: 01-30-2025 ambulatory Michelle Vanegas Facility:[facility] Start: 01-25-2025 End: 01-25-2025 Emergency department patient visit MAYELIN NEWTON MD [facility] Start: 01-16-2025 End: 01-16-[address] Michelle Vanegas MD -[facility] Work Phone: Start: 01-16-2025 End: 01-16-[address] Michelle Vanegas MD Work Phone: -[facility] Start: 09-26-2024 End: 09-26-[address] Michelle Vanegas MD -[facility] Work Phone: Start: 09-26-2024 End: 09-26-[address] Michelle Vanegas MD Work Phone: [facility] Work Phone: Start: 09-26-2024 End: 09-26-2024 ambulatory Michelle Kaurdonald Facility:[facility] Start: 09-05-2024 End: 09-05-2024 Patient encounter procedure Julian REYES -[facility] Work Phone: Start: 09-05-2024 End: 09-05-2024 ambulatory Julian REYES Facility:[facility] Start: 08-09-2024 End: 08-09-2024 Patient encounter procedure Julian REYES -[facility] Work Phone: Start: 08-09-2024 End: 08-09-2024 ambulatory Michelle Vanegas Facility:[facility] Start: 05-23-2024 End: 05-23-2024 ambulatory Anthonyjessica Dapetar Facility:[facility] Start: 04-26-[address] Michelle Vanegas MD Work Phone: [facility] Start: 09-25-[address] Michelle Vanegas MD Work Phone: [facility] Procedures Date Procedure Procedure Detail Performing Clinician Start: 02-05-2025 MRI of brain with contrast Dr. Michelle Vanegas MD Work Phone: Start: 01-30-[address] Jean Vanegas MD Work Phone: Comment on above: Performed at: [address] Director: Yayo Ledezma PhD, Phone: [phone] Start: 01-30-2025 Antibody to centrome re measurement Dr. Michelle Vanegas MD Work Phone: Comment on above: Test not performed Start: 01-30-2025 Antibody to extracta ble nuclear antigen measurement Dr. Michelle Vanegas MD Work Phone: Comment on above: Test not performed Start: 01-30-2025 Antibody to DEMARCUS-[address] Michelle Vanegas MD Work Phone: Comment on above: Test not performed Start: 01-30-2025 Antibody to lupus La protein measurement Dr. Michelle Vanegas MD Work Phone: Comment on above: Test not performed Start: 01-30-2025 Antibody to SS-A measurement Dr. Michelle Vanegas MD Work Phone: Comment on above: Test not performed Start: 01-30-[address] Michelle Vanegas MD Work Phone: Comment on above: Test not performed Start: 01-30-2025 MANAGER WIRELESS antibody measurement Dr. Michelle Vanegas MD Work Phone: Comment on above: Test not performed Start: 06-06-2020 Lipid 1996 panel - S kar or Plasma Jelena Castelan NP Work Phone: Plan of Treatment Date Care Activity Detail Author Start: 2037 RSV Vaccine (1 - 1-dose 75+ series) RSV Vaccine (1 - 1-dose 75+ series) [facility] Start: 06-06-2025 Lipid panel Lipid Screening [facility] Start: 03-04-2025 Influenza vaccination Influenza Vaccine (#1) [facility] Start: 01-30-2025 CBC W Auto Differential panel - Blood [facility] Start: 01-30-2025 Comprehensive metabolic 2000 panel - Serum or Plasma [facility] Start: 01-30-2025 C reactive protein [Mass/volume] in Serum or Plasma [facility] Start: 01-30-2025 Cytoplasmic ANCA Screen [facility] Start: 01-30-2025 Erythrocyte sedimentation rate [facility] Start: 06-06-2023 Diabetes Screening Diabetes Screening [facility] Start: 03-23-2017 Pneumococcal Vaccine: 50+ (2 of 2 - PCV20 or PCV21) Pneumococcal Vaccine: 50+ (2 of 2 - PCV20 or PCV21) [facility] Start: 02-24-2012 Shingrix Vaccine (1 of 2) Shingrix Vaccine (1 of 2) [facility] Start: 2007 Screening for malignant neoplasm of colon [facility] Start: 2002 Screening for malignant neoplasm of breast Mammogram Screening [facility] Start: 1983 Screening for malignant neoplasm of cervix Cervical Cancer Screening [facility] Start: 1981 Urine microalbumin profile DTaP,Tdap,Td Vaccine (1 - Tdap) [facility] Start: 02-24-1980 Anxiety Screening Anxiety Screening [facility] Start: 02-24-1980 Depression Screening Depression Screening [facility] Start: 02-24-1980 Hepatitis C screening Hepatitis C Screening [facility] Start: 02-24-1980 HIV screening HIV Screening [facility] Alanine aminotransfe rase [Enzymatic activity/volume] in Serum or Plasma [facility] Albumin [Mass/volume ] in Serum or Plasma [facility] Alkaline phosphatase [Enzymatic activity/volume] in Serum or Plasma [facility] Anion gap in Serum o r Plasma [facility] Antibody to lupus La protein measurement [facility] Antibody to SS-A measurement [facility] Basic metabolic 2008 panel with ionized calcium - Serum or Plasma [facility] Bilirubin, total measurement [facility] BUN/Creatinine ratio [facility] Calcium [Mass/volume ] in Serum or Plasma [facility] Carbon dioxide, tota l [Moles/volume] in Central venous blood [facility] Creatinine [Mass/vol ume] in Serum or Plasma [facility] DNA double strand Ab [Units/volume] in Serum [facility] Erythrocyte mean corpuscular volume determination [facility] Glucose [Mass/volume ] in Serum or Plasma [facility] Hematocrit [Volume Fraction] of Blood [facility] Hemoglobin [Mass/vol ume] in Blood [facility] Leukocytes [#/volume ] in Blood [facility] Mean corpuscular hem oglobin concentration determination [facility] Mean corpuscular hem oglobin determination [facility] Measurement of renal function [facility] MR Brain WO and W co ntrast IV [facility] Neutrophil count [facility] Neutrophil percent differential count [facility] Nuclear Ab [Presence ] in Serum [facility] Platelets [#/volume] in Blood [facility] Potassium measurement [facility] Red blood cell count [facility] Red cell distributio n width determination [facility] Serum chloride measurement [facility] Sodium measurement [facility] Thyroid stimulating hormone measurement [facility] Total protein measurement [facility] Urea nitrogen [Mass/ volume] in Serum or Plasma [facility] XR Chest PA and Lateral [facility] Immunizations Immunization Date Immunization Notes Care Provider Fa cility 07-09-2021 Covid (Moderna) Dr. Gary Vanegas MD Work Phone: [facility] 12-24-2020 Covid (Moderna) Dr. Gary Vanegas MD Work Phone: [facility] 11-26-2020 Covid (Moderna) Dr. Gary Vanegas MD Work Phone: [facility] 03-23-2016 pneumococcal conjuga te vaccine, [address] Michelle Vanegas MD Work Phone: [facility] Payers Date Payer Category Payer Private Health Insurance [id number] 2024 Private Health Insurance [id number] 2024 Self-pay 2024 Unknown [id number] 2020 Blue [employer] Blue Shield BLUE CARD PPO OOS Member Subscriber Plan / Payer (Effective 2020-Present) Name: Vania Malone Relation to Subscriber: Self Name: Vania Malone Payer ID: [id number] (NAIC) Group ID: Not on file Type: PPO Address: [facility] [address] [place] [id number] 1960 Unknown [id number] 1960 Unknown [id number] Private Health Insurance [id number] Unknown [id number] Unknown [id number] Unknown [id number] .[id number] Unknown [id number] .462 Unknown [id number] .462 Unknown [id number] .462 Unknown [id number] .462 Unknown [id number] .462 Unknown [id number] .462 Unknown [id number] .462 Unknown [id number] .462 Unknown [id number] .462 Social History Date Type Detail Facility Start: 08-16-2013 End: 08-10-2023 Tobacco smoking status NHIS Never smoked tobacco (finding) [facility] Start: 09-30-2024 Sex Female (finding) [facility] Start: 1960 Sex Assigned At Female [facility] Start: 08-16-2013 Tobacco use and exposure Smokeless tobacco non-user [facility] Start: 01-09-2021 Alcoholic beverage intake Current drinker of alcohol (finding) [facility] Start: 11-20-2020 End: 01-09-2021 History of Social function [facility] Start: 11-20-2020 End: 01-09-2021 Tobacco use panel [facility] Start: 06-04-2012 National Score (1-10 0), lower number is lower risk Not on file [facility] Start: 11-19-2020 Alcohol Comment once every other tue th [facility] Start: 11-13-2020 Gender identity Identifies as female gender (finding) [facility] Start: 11-13-2020 Sexual orientation Heterosexual (barb raman) [facility] Clinical Notes 11-20-2020 to 02-25-2025 Telephone Encounter - Mele Montero - 02/25/2025 12:53 PM EDTTelephone Encounter - Mele Montero - 02/25/2025 12:53 PM EDT Note Date & Type Note Facility 02-25-2025 Telephone encounter Note Rtn pt call LVM [facility] 02-25-2025 Miscellaneous Notes Rtn pt call LVM documented in this encounter [facility] 02-07-2025 Evaluation + Plan note Diagnostic Tests PendingLyme Disease Serology w/Reflex 02/07[facility]25 [facility] 01-25-2025 Hospital Discharg e instructions Patient Education 01/25/2025 20:14:54 Strong s Palsy Strong s Palsy Strong s palsy is a nerve disorder that usually happens suddenly and without warning. This condition happens when a nerve that controls facial movement is swollen, inflamed, or compressed. Nerve damage can happen for many reasons. But most cases of Strong s palsy are probably caused by a virus. Symptoms of Strong s palsy Here are signs of the disorder: Weakness, twitching, or total paralysis of one side of your face (in rare cases, on both sides) Drooping of the eyelid and mouth, drooling on one side of mouth Trouble closing one eye completely, and excessive tearing Noises seeming louder than usual Ringing in one or both ears Change in your sense of taste When to go to the emergency room (ER) There are conditions, such as stroke, that may look like Strong's palsy and are medical emergencies. Therefore, you should seek emergent medical care if you notice facial weakness or drooping. Although Strong s palsy can be alarming, it s rarely serious. Many people begin to improve in about 2 weeks, even without treatment. It is important to be seen as soon as possible. Most research shows that treatment is best when received within the first few days of symptoms. Treatment To treat Strong s palsy, you may be given steroid medicines. This helps reduce swelling of the affected nerve. In some cases, your healthcare provider may prescribe an antiviral medicine. Your open eye may be covered with a patch to prevent it from drying out. You also may need to use eye drops and ointments for a time. Physical therapy, facial massage, or acupuncture may also be prescribed. Your healthcare provider will discuss follow-up care with you, including the possible need for further treatment to help your facial muscles return to normal. [id number] [employer]. [address] [place] [address]. All rights reserved. This information is not intended as a substitute for professional medical care. Always follow your healthcare professional's instructions. Follow Up Care 01/25/2025 20:02:13 With:JELENA CASTELAN Address: [address] [place] [phone] Business (1) When:2-4 days Comments:Schedule an appointment for close follow-up.Use moisturizing eyedrops for your right eye, tape it closed at night to prevent it from drying out.Use steroid (prednisone) and antiviral medicine (Valtrex) as prescribed.Return to the ED if symptoms worsen. [facility] 01-25-2025 Emergency department Discharge summary Discharge Instructions Thank you for allowing [facility] to assist you with your healthcare needs. The following is important discharge information regarding your hospital visit. Diagnosis from Today's Visit Strong's palsy What to Do Next Instructions from Your Care Team No qualifying data available. Post Acute Orders No qualifying data available. You Need to Schedule the Following Appointments Follow Up with JELENA CASTELAN When:Within 2-4 days Where:[address] [place] [phone] Business (1) Additional Information: Schedule an appointment for close follow-up. Use moisturizing eyedrops for your right eye, tape it closed at night to prevent it from drying out. Use steroid (prednisone) and antiviral medicine (Valtrex) as prescribed. Return to the ED if symptoms worsen. Allergies NKA Medications Please ask your primary doctor or pharmacist before taking any other medication not listed, including over the counter drugs, herbal medications, vitamins and or supplements as they may interact with your home medications. What How Much When Instructions Last Dose New predniSONE (predniSONE 20 mg oral tablet) 2 tab(s) by mouth Once a day Duration: 7 Days Printed Prescription New valACYclovir (Valtrex 500 mg oral tablet) 1 tab(s) by mouth Every 12 hours Duration: 5 Days Printed Prescription Please take this list to your next doctor s visit. Bring all medications you take, including over the counter medications, herbals and other supplements with you to your doctor s visit. Patients and families are reminded to discard old lists and to update any records with all medication providers or retail pharmacies. Education Materials Strong s Palsy Strong s palsy is a nerve disorder that usually happens suddenly and without warning. This condition happens when a nerve that controls facial movement is swollen, inflamed, or compressed. Nerve damage can happen for many reasons. But most cases of Strong s palsy are probably caused by a virus. Symptoms of Strong s palsy Here are signs of the disorder: Weakness, twitching, or total paralysis of one side of your face (in rare cases, on both sides) Drooping of the eyelid and mouth, drooling on one side of mouth Trouble closing one eye completely, and excessive tearing Noises seeming louder than usual Ringing in one or both ears Change in your sense of taste When to go to the emergency room (ER) There are conditions, such as stroke, that may look like Strong's palsy and are medical emergencies. Therefore, you should seek emergent medical care if you notice facial weakness or drooping. Although Strong s palsy can be alarming, it s rarely serious. Many people begin to improve in about 2 weeks, even without treatment. It is important to be seen as soon as possible. Most research shows that treatment is best when received within the first few days of symptoms. Treatment To treat Strong s palsy, you may be given steroid medicines. This helps reduce swelling of the affected nerve. In some cases, your healthcare provider may prescribe an antiviral medicine. Your open eye may be covered with a patch to prevent it from drying out. You also may need to use eye drops and ointments for a time. Physical therapy, facial massage, or acupuncture may also be prescribed. Your healthcare provider will discuss follow-up care with you, including the possible need for further treatment to help your facial muscles return to normal. [phone] [employer]. [address] [place] [address], [place] [address]. All rights reserved. This information is not intended as a substitute for professional medical care. Always follow your healthcare professional's instructions. Additional Information VACCINATE! IT SAVES LIVES! Members of the community who have not yet received the COVID-19 vaccine and would like to receive it can visit one of [facility] vaccine clinics. There are many vaccine clinic locations within the [facility]. For locations and available times, please visit [email or web address] [email or web address] It is important to note that some COVID mobile vaccine clinics are held outdoors and may be canceled in rainy or stormy conditions. To learn more about pediatric vaccinations (ages 5-11), we invite you to visit the [employer] [facility] webpage. https://www.Scoopshots.org/p ages/3733-Rnzsf-Eadfpuvvzzh-Freq qiyiwg-Taggn-Wmdxdellz.html To learn more about the COVID-19 vaccine, we invite you to visit the CDC website for a list of frequently asked questions. https://www.cdc.gov/coronavirus/ 2019-ncov/vaccines/faq.html [employer] Patient Portal Access Instructions: Stay connected with your healthcare team and access your personal medical information anytime with the [employer] Patient Portal. If you would like a full copy of your medical records please contact the [facility] Medical Records Department Tuesday through Tuesday between 8a.m. and 4:30p.m. Please follow the directions below to access the portal: 1.Access the email account you provided upon registration to the hospital.2.Look for an invitation email from [facility].3.Open the email and access the invitation link: Accept Invitation to [employer].Fill in the required jenkins to create your account. Sign into [email or web address] with your username and password that you created in the above steps to stay up to date. You can then view a summary of results, a summary of your visits, and the ability to download your summaries to your computer or send the information securely to a physician. Remember that your healthcare information is confidential, so carefully consider who you will allow to register on the [employer] Patient Portal for access to your information. You can also access the [employer] Patient Portal on the [employer]. Simply click on Health Records under Health Data and then click on the [employer] logo. HOW TO SAFELY DISPOSE OF PRESCRIPTION MEDICATIONS Please use one of the following methods to safely dispose of your unused medications. 1.Use a drug disposal kit: the drug disposal pouch allows you to safely discard your old and unused drugs. Ask your nurse to give you one when you are discharged.2.Visit a local take-back location: Many local pharmacies and police departments have programs that collect old and unwanted prescription drugs. Call your local pharmacy or go to http://Illumio.ipatter.com/7V9Ta8z to find one close to you.3.Make use of household items: Use cat litter or old coffee grounds to dispose medications if other options are not available. Mix your drugs with these household products, seal them in an airtight container and throw it into the garbage. Call [facility]: [phone] to be sure your drugs can be disposed of in this way. Some medicines may require a different approach.4.Never flush your medications down the toilet. IF YOU HAVE BEEN PRESCRIBED AN OPIOIDS FOR PAIN If you have been prescribed an opioid (such as hydrocodone, oxycodone or morphine), it is critical to understand the possible side effects and risks of opioid pain medications. Even when taken as directed, opioids can have several side effects including: Tolerance, meaning you might need to take more of a medication for the same pain relief. Nausea, vomiting and/or constipation. Sleepiness, dizziness, dry mouth, confusion, depression or itching. Physical dependence, meaning you have withdrawal symptoms when a medication is stopped ? this can develop within a few days. KNOW YOUR RESPONSIBILITIES It is important to know exactly how much and how often to take the opioid pain medications you are prescribed. Never take opioids in higher amounts or more often than prescribed. Do not combine opioids with alcohol or other drugs that cause drowsiness, such as benzodiazepines, also known as benzos, including diazepam and alprazolam, muscle relaxants or sleep aids. Never sell or share prescription opioids. This is illegal. Store opioids in a secure place and out of reach of others (including children, family, friends and visitors). The last page(s) of this document has been signed and retained as a CHART COPY Signatures Patient Education Materials Strong s Palsy Medication Leaflets My discharge plan and instructions have been reviewed and explained to me and I,VANIA MALONE understand my current condition and have read and understand these discharge instructions. I have received a written copy of the plan/instructions. If I have questions, I am aware that I should contact my doctor. Patient/Front Desk Clerk Signature: Date/Time: Relationship to Patient: Witness Name/Signature: Date/Time: [facility] 01-16-2025 Evaluation note Diagnosis Onset Date Resolution Essential hypertension chronic Ju ly 2024 3:53pm Hiatal hernia with GERD chronic J lizzy2024 3:53pm Hypothyroidism chronic January 16, 2025 3:53pm Obesity (BMI 30-39.9) chronic Jan 3:53pm [facility] Work Phone: 1(774) 395-488007-16-2025 Evaluation note* Diagnosis Onset Date Resolution Status Admit Date Essential hypertension chronic Ju ly 2024 3:53pm Hiatal hernia with GERD chronic J lizzy 2024 3:53pm Hypothyroidism chronic January 16, 2025 3:53pm Obesity (BMI 30-39.9) chronic Jan 3:53pm Strong's palsy acute January 30, 2 025 8:55am Facial nerve palsy acute January 032024 8:55am [facility] Work Phone: 1(262) 731-247103-26-2025 Evaluation note* Diagnosis Onset Date Resolution Status Admit Date Essential hypertension chronic [facility] 2024 12:45pm Hypothyroidism chronic September 12:45pm Sinusitis chronic September 26 12:45pm [facility] Work Phone: [phone] Evaluation note* Diagnosis Onset Date Resolution Status Admit Date Sinusitis chronic August 09, 2024 12:42pm Cough acute September 05 10:48am Reactive airway disease with out asthma acute September 05, 2024 10:48am Essential hypertension chronic [facility] 2024 12:45pm Hypothyroidism chronic September 12:45pm Sinusitis chronic September 26 12:45pm [facility] Work Phone: [phone] NoteHNO ID: [id number] Author: Astrid Hernodn MD Service: ? Author Type: Physician Type: Progress Notes Filed: 01/09/2021 10:35 AM Note Text: VIRTUAL VISIT PROGRESS NOTE This is a virtual visit using Last 2 Left video visit. It required patient-provider interaction for the medical decision making as documented below. Vania Malone is a 60 year old female seen for follow-up of asplenia, management of vaccinations. She notes that she has done very well with the Covid vaccine series and had blood work drawn evaluating her immune function. I reviewed this in detail noting that she has excellent immune levels and normal response to vaccine.. HISTORY REVIEWED (electronic chart updated): PAST MEDICAL HISTORY Diagnosis Date - HTN (hypertension) - Hypothyroidism PAST SURGICAL HISTORY Procedure Laterality Date - PANCREAS SURGERY HX Partial pancreas removal with spleen removal FAMILY HISTORY Problem Relation Age of Onset - No Known Problems Mother - Heart disease Father - Heart disease Sister - Obstructive Sleep Apnea Sister - Cancer Maternal Grandmother - Heart Attack Maternal Grandfather - Cancer Paternal Grandmother - Accidental Paternal Grandfather Social History Tobacco Use - Smoking status: Never Smoker - Smokeless tobacco: Never Used Vaping Use - Vaping Use: Never used Substance Use Topics - Alcohol use: Yes Comment: once every other month - Drug use: Never Current Outpatient Medications Medication Sig - metoprolol tartrate, short acting, (LOPRESSOR) 25 mg tablet TAKE 1 TABLET BY MOUTH TWICE DAILY. - omeprazole (PRILOSEC) 20 mg capsule Take 1 capsule by mouth every morning. - levothyroxine (SYNTHROID) 125 mcg tablet Take 125 mcg by mouth once daily. No current facility-administered medications for this visit. ALLERGIES No Known Allergies REVIEW OF SYSTEMS: GENERAL: feeling well without fatigue, no recent change in weight HEENT: denies MACKEY, change in hearing or vision, no other ENT complaints NECK: denies swelling or pain in neck RESPIRATORY: no cough, no wheezing or shortness of breath CARDIOVASCULAR: no chest pain, no palpitations GI: normal appetite, tolerating PO well, BMs normal and no abdominal pain MUSCULOSKELETAL: denies any painful or swollen joints, no muscle aches SKIN: no rash PSYCH: denies depressed or anxious mood, sleep is normal PHYSICAL EXAMINATION: VIDEO EXAM: (if completed, performed via video enabled technology) GENERAL: alert and appropriate, in no distress, well-hydrated, well nourished and happy, smiling, interactive SKIN: no rash noted HEAD: normocephalic, no abnormality or lesion noted EYES: no injection and visual acuity is grossly normal EARS: hearing grossly normal NOSE: external nose normal without rhinorrhea OROPHARYNX: moist mucus membranes NECK: full ROM, no cervical LNs noted RESPIRATORY: breathing non-labored CHEST: equal chest rise with normal respiratory effort ASSESSMENT: (J31.0) Chronic rhinitis (primary encounter diagnosis) (Z90.81) Asplenia after surgical procedure (J41.1) Bronchitis, mucopurulent recurrent (HCC) (K86.89) Pancreatic mass PLAN: Follow-up in 1 year Continue avoidance measures and current medical regimen Recommended attending travel clinic if she travels outside the [place] especially in tropical climates. There are no Patient Instructions on file for this visit. I spent a total of 20 minutes on the date of the service which included preparing to see the patient, [id number] patient care, completing clinical documentation and performing a medically appropriate examination Astrid Herndon [facility]05-20-2021 NoteHNO ID: [id number] Author: Astrid Herndon MD Service: ? Author Type: Physician Type: Progress Notes Filed: 11/20/2020 9:08 AM Note Text: VIRTUAL VISIT PROGRESS NOTE This is a virtual visit using Last 2 Left video visit. It required patient-provider interaction for the medical decision making as documented below. Vania Malone is a 60 year old female seen for new patient evaluation for immunodeficiency, recurrent bronchitis and asplenia. 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 She is very concerned about side effects and indications for Covid vaccination as well as what else she should do in preparation for this. 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 She recalls having a pneumonia vaccine in 2004 her records reflect having Prevnar in 2013 which I did not see until after her visit was concluded. I discussed that she should receive the vaccine series for meningitis as well which she denies having in the past. Reviewed risks and benefits related to Covid vaccination and recommended that she proceed with this. I discussed that if she has not had good vaccine response in the past this may lessen the likelihood of it being protective but she would be at no greater harm than the average population since this is not a live vaccine HISTORY REVIEWED (electronic chart updated): PAST MEDICAL HISTORY Diagnosis Date - HTN (hypertension) - Hypothyroidism PAST SURGICAL HISTORY Procedure Laterality Date - PANCREAS SURGERY HX Partial pancreas removal with spleen removal FAMILY HISTORY Problem Relation Age of Onset - No Known Problems Mother - Heart disease Father - Heart disease Sister - Obstructive Sleep Apnea Sister - Cancer Maternal Grandmother - Heart Attack Maternal Grandfather - Cancer Paternal Grandmother - Accidental Paternal Grandfather Social History Tobacco Use - Smoking status: Never Smoker - Smokeless tobacco: Never Used Vaping Use - Vaping Use: Never used Substance Use Topics - Alcohol use: Yes Comment: once every other month - Drug use: Never Current Outpatient Medications Medication Sig - metoprolol tartrate, short acting, (LOPRESSOR) 25 mg tablet TAKE 1 TABLET BY MOUTH TWICE DAILY. - omeprazole (PRILOSEC) 20 mg capsule Take 1 capsule by mouth every morning. - levothyroxine (SYNTHROID) 125 mcg tablet Take 125 mcg by mouth once daily. No current facility-administered medications for this visit. ALLERGIES No Known Allergies REVIEW OF SYSTEMS: GENERAL: feeling well without fatigue, no recent change in weight HEENT: denies MACKEY, change in hearing or vision, no other ENT complaints NECK: denies swelling or pain in neck RESPIRATORY: no cough, no wheezing or shortness of breath CARDIOVASCULAR: no chest pain, no palpitations GI: normal appetite, tolerating PO well, BMs normal and no abdominal pain MUSCULOSKELETAL: denies any painful or swollen joints, no muscle aches SKIN: no rash PSYCH: denies depressed or anxious mood, sleep is normal PHYSICAL EXAMINATION: VIDEO EXAM: (if completed, performed via video enabled technology) GENERAL: alert and appropriate, in no distress, well-hydrated, well nourished and happy, smiling, interactive SKIN: no rash noted HEAD: normocephalic, no abnormality or lesion noted EYES: no injection and visual acuity is grossly normal EARS: hearing grossly normal NOSE: external nose normal without rhinorrhea OROPHARYNX: moist mucus membranes NECK: full ROM, no cervical LNs noted RESPIRATORY: breathing non-labored CHEST: equal chest rise with normal respiratory effort ASSESSMENT: (J31.0) Chronic rhinitis (primary encounter diagnosis) (Z90.81) Asplenia after surgical procedure (J41.1) Bronchitis, mucopurulent recurrent (HCC) (K86.89) Pancreatic mass PLAN: Check IgG SHAMAR pneumococcal titers Recommend that she receive Pneumovax and meningococcal series Repeat pneumococcal titers after Pneumovax has been administered Follow-up with me in 6 to 8 weeks There are no Patient Instructions on file for this visit. I spent a total of 45 minutes on the date of the service which included preparing to see the patient, [id number] patient care, completing clinical documentation and ordering medications, tests, or procedures Astrid Herndon, [facility] Plan note No data available for this section [facility] Discharge instructionsAmbulatory Orders* Neurology Location: None [facility] Work Phone: Hospital Discharge instructions No data available for this section [facility] Progress note No data available for this section [facility] Reason for referral (narrative)No reason for referral information availableWBrecksville [facility] Work Phone: Summary Purpose Family History No Family History Records Found Relationship Condition Age at Onset Recorded Date/T taylor Not Specified Diabetes mellitus Unknown Cardiac disease Unknown Malignant neoplasm Unknown Hypertension Unknown aunt Malignant neoplasm of colon Unknown Advance Directives No Advanced Directives Records FoundNo Advanced Directives Records FoundNo Advanced Directives Records FoundNo Advanced Directives Records FoundNo Advanced Directives Records Found Chief Complaint and Reason for Visit Chief Complaint Admit Date ACUTE FLU SYMPTOMS, EAR PAIN August 12:42pm ACUTE-COUGH PERSISTS September 05, 2024 10: 48am 4 M FU September 26, 2024 12: 45pm Reason for Visit Admit Date Sinusitis August 09, 2024 1 2:42pm Cough September 05, 2024 10:4 8am Reactive airway disease without asthma [facility] 2024 10:48am Essential hypertension September 26, 2024 12:45pm Hypothyroidism September 26, 2024 12: 45pm Sinusitis September 26, 2024 12: 45pm Chief Complaint Admit Date 4 M FU September 26, 2024 12: 45pm 3 M FU January 16, 2025 3:53 pm Reason for Visit Admit Date Essential hypertension September 26, 2024 12:45pm Hypothyroidism September 26, 2024 12: 45pm Sinusitis September 26, 2024 12: 45pm Chief Complaint Admit Date 3 M FU January 16, 2025 3:53 pm HOSP FU January 30, 2025 8:55 am Reason for Visit Admit Date Essential hypertension January 16, 2025 3 :53pm Hiatal hernia with GERD January 16, 2025 3:53pm Hypothyroidism January 16, 2025 3:53 pm Obesity (BMI 30-39.9) January 16, 2025 3: 53pm Chief Complaint Admit Date 3 M FU January 16, 2025 3:53 pm HOSP FU January 30, 2025 8:55 am recurrent strong's palsy February 05, 2025 1:04pm Reason for Visit Admit Date Essential hypertension January 16, 2025 3 :53pm Hiatal hernia with GERD January 16, 2025 3:53pm Hypothyroidism January 16, 2025 3:53 pm Obesity (BMI 30-39.9) January 16, 2025 3: 53pm Strong's palsy January 30, 2025 8:55 am Facial nerve palsy January 30, 2025 8:55 am Additional Source Comments INFORMATION SOURCE (unrecogn ized section and content) DATE CREATED AUTHOR 08/16/2020 [facility] (PR) DATE CREATED AUTHOR AUTHOR'S ORGANIZ ATION 07/28/2021 [facility] DATE CREATED AUTHOR AUTHOR'S ORGANIZ ATION 02/09/2025 [facility] DATE CREATED AUTHOR AUTHOR'S ORGANIZ ATION 02/26/2025 [facility] DATE CREATED AUTHOR AUTHOR'S ORGANIZ ATION 04/30/2025 [facility] Care Teams (unrecognized sec tion and content) Team Status: Active Member Role Status Dates Dr. Michelle Vanegas MD Primary Care Provider Active Team Status: Inactive Member Role Status Dates Dr. Michelle Vanegas MD Primary Care Provider Active Start: August 09, 2024 End: August 09, 2024 Dr. Michelle Vanegas MD Referring Provider Active Start: August 09, 2024 End: August 09, 2024 ERIC Quinn Attending Provider Active St art: August 09, 2024 End: August 09, 2024 Team Status: Inactive Member Role Status Dates Dr. Michelle Vanegas MD Primary Care Provider Active Start: September 05, 2024 End: September 05, 2024 Dr. Michelle Vanegas MD Referring Provider Active Start: September 05, 2024 End: September 05, 2024 ERIC Quinn Attending Provider Active St art: September 05, 2024 End: September 05, 2024 Team Status: Inactive Member Role Status Dates Dr. Michelle Vanegas MD Primary Care Provider Active Start: September 26, 2024 End: September 26, 2024 Dr. Michelle Vanegas MD Attending Provider Active Start: September 26, 2024 End: September 26, 2024 Dr. Michelle Vanegas MD Referring Provider Active Start: September 26, 2024 End: September 26, 2024 Team Status: Active Member Role/Relationship Status Dates Dr. Michelle Vanegas MD Primary Care Provider Active Team Status: Inactive Member Role/Relationship Status Dates Dr. Michelle Vanegas MD Primary Care Provider Active Start: September 26, 2024 End: September 26, 2024 Dr. Michelle Vanegas MD Attending Provider Active Start: September 26, 2024 End: September 26, 2024 Dr. Michelle Vanegas MD Referring Provider Active Start: September 26, 2024 End: September 26, 2024 Team Status: Inactive Member Role/Relationship Status Dates Dr. Michelle Vanegas MD Primary Care Provider Active Start: September 26, 2024 End: September 26, 2024 Dr. Michelle Vanegas MD Attending Provider Active Start: September 26, 2024 End: September 26, 2024 Dr. Michelle Vanegas MD Referring Provider Active Start: September 26, 2024 End: September 26, 2024 Team Status: Inactive Member Role/Relationship Status Dates Dr. Michelle Vanegas MD Primary Care Provider Active Start: January 16, 2025 End: January 16, 2025 Dr. Michelle Vanegas MD Attending Provider Active Start: January 16, 2025 End: January 16, 2025 Dr. Michelle Vanegas MD Referring Provider Active Start: January 16, 2025 End: January 16, 2025 Team Status: Inactive Member Role/Relationship Status Dates Dr. Michelle Vanegas MD Primary Care Provider Active Start: January 16, 2025 End: January 16, 2025 Dr. Michelle Vanegas MD Attending Provider Active Start: January 16, 2025 End: January 16, 2025 Dr. Michelle Vanegas MD Referring Provider Active Start: January 16, 2025 End: January 16, 2025 Team Status: Inactive Member Role/Relationship Status Dates Dr. Michelle Vanegas MD Primary Care Provider Active Start: January 30, 2025 End: January 30, 2025 Dr. Michelle Vanegas MD Attending Provider Active Start: January 30, 2025 End: January 30, 2025 Dr. Michelle Vanegas MD Referring Provider Active Start: January 30, 2025 End: January 30, 2025 Team Status: Active Member Role/Relationship Status Dates Dr. Michelle Vanegas MD Primary Care Provider Active Start: January 30, 2025 Dr. Michelle Vanegas MD Attending Provider Active Start: January 30, 2025 Team Status: Inactive Member Role/Relationship Status Dates Dr. Michelle Vanegas MD Primary Care Provider Active Start: February 05, 2025 End: February 05, 2025 Dr. Michelle Vanegas MD Attending Provider Active Start: February 05, 2025 End: February 05, 2025 Dr. Michelle Vanegas MD Referring Provider Active Start: February 05, 2025 End: February 05, 2025 Team Status: Inactive Member Role/Relationship Status Dates Dr. Michelle Vanegas MD Primary Care Provider Active Start: January 30, 2025 End: January 30, 2025 Dr. Michelle Vanegas MD Attending Provider Active Start: January 30, 2025 End: January 30, 2025 Child Adolescent Care Relationship Specialty Start Date End Date Jelena Castelan NP [address] [place] [id number] PCP - General Internal Medicine 10/23/20 Goals (unrecognized section and content) Goals may be documented in a n alternate sectionGoals may be documented in an alternate section No data available for this sectionGoals may be documented in an alternate section No data available for this sectionGoals may be documented in an alternate sectionGoals may be documented in an alternate section Source Comments (unrecognize d section and content) In the event this informatio n is protected by the Federal Confidentiality of Alcohol and Drug Abuse Patient Records regulations: The Federal rules restrict any use of the information to criminally investigate or prosecute any alcohol or drug abuse patient.[facility] Reason for Visit (unrecogniz ed section and content) Reason Comments Returning Patient's Call Rtn pt call LVM FOR RECORDS PERTAINING TO PATIENTS WHO ARE OR HAVE BEEN ENROLLED IN A CHEMICAL DEPENDENCY/SUBSTANCEABUSE PROGRAM, SOME INFORMATION MAY BE OMITTED. This clinical summary was aggregated from multiple sources. Caution should be exercised in using it in the provision of clinical care. This summary normalizes information from multiple sources, and as a consequence, information in this document may materially change the coding, format and clinical context of patient data. In addition, data may be omitted in some cases. CLINICAL DECISIONS SHOULD BE BASED ON THE PRIMARY CLINICAL RECORDS. [facility]. provides no warranty or guarantee of the accuracy or completeness of information in this document.
== END | disposition home or self-care (01) ==
PROVIDERS: PCP Internal Medicine; Referring Provider Internal Medicine; Visit Provider Internal Medicine
DX: Z12.31 Encounter for screening mammogram for malignant neoplasm of breast (principal)
CPT/HCPCS: 36415; 77063; 77067; 80048; 84443